=== PATIENT | female | born 1965 | race Caucasian/White ===

== ENCOUNTER 2020-05-25 23:22 | Emergency (ER) | payer SELFPAY ==
[~2020-05-25] VITALS: Ht 167.6 cm; Wt 77.1 kg
== END 2020-05-26 00:29 | disposition home or self-care (01) ==
LOC: ER 23:22
DX: J06.9 Acute upper respiratory infection, unspecified (principal)
CPT/HCPCS: 99282

== ENCOUNTER 2020-08-24 16:02 | Emergency (ER) | payer OTHER ==
[~2020-08-24] VITALS: Ht 167.6 cm; Wt 79.4 kg
[2020-08-24] MEDS ORDERED: Bactrim Ds Tab1 EACH PO (17:12)
== END 2020-08-24 17:33 | disposition home or self-care (01) ==
LOC: ER 16:02
DX: L03.116 Cellulitis of left lower limb (principal); F17.200 Nicotine dependence, unspecified, uncomplicated
CPT/HCPCS: 73590; 99283-25

== ENCOUNTER 2021-01-15 16:26 | Emergency (ER) | payer OTHER ==
[~2021-01-15] VITALS: Ht 165.1 cm; Wt 84.4 kg
[~2021-01-15 16:26] MED LIST: Bactrim Ds Tab1 EACH PO
[2021-01-15 18:37] LABS: Source, Urine Voided
[2021-01-15 18:41] LABS: Appearance, Urine Clear (Clear); Bilirubin, Urine Neg (Neg); Blood, Urine 1+ (Neg); Color, Urine Yellow (P-Yellow); Glucose Qualitative, Urine Neg (Neg); Ketones, Urine Neg (Neg); Leukocyte Esterase, Urine Neg (Neg); Nitrite, Urine Neg (Neg); Protein, Urine Neg (Neg); Urobilinogen, Urine NORM (Normal)
[2021-01-15 19:00] LABS: Bacteria Few /hpf; Red Blood Cells, Urine 0-2 /hpf (0-2); Squamous Epithelial Cells Few /hpf (Few); White Blood Cells, Urine 0-2 /hpf (0-5)
[2021-01-15] MEDS ORDERED: Norco 5-325 Ta1 EACH PO (20:41)
== END 2021-01-15 20:56 | disposition home or self-care (01) ==
LOC: ER 16:26
PROVIDERS: Emergency Medicine
DX: N83.201 Unspecified ovarian cyst, right side (principal); F17.200 Nicotine dependence, unspecified, uncomplicated
CPT/HCPCS: 76830; 76856; 81001; 81025; 86304; 99284-25; A9270

== ENCOUNTER 2021-01-28 06:06 | Day surgery (SDC) | payer OTHER ==
[~2021-01-28] VITALS: Ht 167.6 cm; Wt 83.1 kg
[~2021-01-28 06:06] MED LIST changes: +Norco 5-325 Ta1 EACH PO
== END 2021-01-28 10:58 | disposition home or self-care (01) ==
LOC: ORSCSDS 06:06
PROVIDERS: Obstetrics & Gynecology
PROC: 0DNW4ZZ Release Peritoneum, Percutaneous Endoscopic Approach (ICD-10-PCS; principal; 2021-01-28 07:30)
PROC: 0UT54ZZ Resection of Right Fallopian Tube, Percutaneous Endoscopic Approach (ICD-10-PCS; principal; 2021-01-28 07:30)
PROC: 0UT04ZZ Resection of Right Ovary, Percutaneous Endoscopic Approach (ICD-10-PCS; principal; 2021-01-28 07:30)
DX: D27.0 Benign neoplasm of right ovary (principal); K66.0 Peritoneal adhesions (postprocedural) (postinfection); I10 Essential (primary) hypertension; F17.210 Nicotine dependence, cigarettes, uncomplicated; Z79.899 Other long term (current) drug therapy; Z79.82 Long term (current) use of aspirin
CPT/HCPCS: 88305; J0171; J0360; J0690; J1100; J1885; J2270; J2405; J2550; J2704; J3010; J7120

== ENCOUNTER → 2024-03-27 | Outpatient (CLI) | payer OTHER ==
[~2024-03-27] MED LIST changes: +CYCL10 PO; +LIDO700A20 TOP
[2024-03-27 19:45] LABS: Alanine Aminotransfer (ALT/SGP 61 U/L (12-78); Albumin/Globulin Ratio 0.9 (0.8-1.8); Alk Phos 210 U/L (50-136); Anion Gap 14 mmol/L (3-11); Aspartate Aminotrans (AST/SGOT 185 U/L (12-37); Bilirubin, Total 0.8 mg/dL (0.1-1.0); Blood Urea Nitrogen 7 mg/dL (8-24); Bun/Creatinine Ratio 10.4 (12.0-20.0); CHOL/HDL RATIO 4.2; CO2, Blood 21 mmol/L (21-32); Calcium, Blood 8.6 mg/dL (8.5-10.1); Chloride, Blood 104 mmol/L (98-108); Cholesterol 229 mg/dL (50-200); Creatinine, Blood 0.67 mg/dL (0.40-1.00); Globulin, Blood 3.3 g/dL (2.2-4.0); Glomerular Filtration Rate 101 (60-); Glucose, Blood 102 mg/dL (70-99); HDL Cholesterol 54 mg/dL (>39); LDL/HDL RATIO 2.4; Low Density Lipoprotein Chol 129 mg/dL (0-110); Sodium, Blood 135 mmol/L (136-145); Total Protein, Blood 6.3 g/dL (6.4-8.2); Triglycerides 229 mg/dL (30-160); Very Low Density Lipoprot Chol 45 mg/dL (6-32)
== END ==
LOC: LAB SHORT 11:23 → LAB 11:23
PROVIDERS: Physician Assistant
DX: E78.00 Pure hypercholesterolemia, unspecified (principal); R74.8 Abnormal levels of other serum enzymes
CPT/HCPCS: 80053; 80061

== ENCOUNTER 2024-07-08 12:30 | Inpatient (IN) | payer OTHER ==
[2024-07-08] VITALS (10 sets, daily range): BP systolic 67–98; BP diastolic 48–64
[~2024-07-08] VITALS: Ht 160 cm; Wt 67.0 kg
[2024-07-08] MEDS ORDERED: Pantoprazole Sodium 40 MG Injection IV ONE (13:25)
[2024-07-08] MEDS ORDERED: Ondansetron HCl 2 MG / ML 2ML Vial IV ONE (13:25)
[2024-07-08] MEDS ORDERED: LISI20 PO (13:28)
[2024-07-08 13:34] LABS: Hematocrit 23.9 % (33.0-51.0); Hemoglobin 8.1 g/dL (11.5-16.0); Mean Corpuscular HGB 38.8 pg (26.0-34.0); Mean Corpuscular HGB Conc 33.9 g/dL (31.5-36.5); Mean Corpuscular Volume 114 fL (80-100); Mean Platelet Volume 10.6 fL (9.1-12.4); NRBC ABSOLUTE 0.02 K/mm3 (0.00-0.02); NRBC Auto 0.1 /100 WBC (0.0-0.2); Platelet Count 207 K/mm3 (150-400); RDW Coefficient Variation 14.6 % (11.7-14.2); Red Blood Cell Count 2.09 M/mm3 (3.80-5.20); White Blood Cell Count 13.94 K/mm3 (4.00-11.30)
[2024-07-08 13:37] LABS: Calcium, Ionized (POC) 0.96 mmol/L (1.10-1.46); Chloride (POC) 95 mmol/L (98-108); Creatinine (POC) 3.8 mg/dL (0.6-1.0); Glucose (ISTAT POC) 66 mg/dL (70-99); Hemoglobin (POC) 9.9 g/dL (12.0-16.0); Potassium (POC) 4.5 mmol/L (3.5-5.5); Sodium (POC) 125 mmol/L (135-148); Total CO2 (POC) 18 mmol/L (21-32)
[2024-07-08] MEDS ORDERED: Dextrose 50% 50 ML Syringe IV ONE (13:45)
[2024-07-08] MEDS ORDERED: NS 1,000 ML IV SCH ×2 (13:45→18:15)
[2024-07-08] MEDS ORDERED: Thiamine HCl 100 MG in NS 50 ML IV ONE (13:45)
[2024-07-08] MEDS ORDERED: CALCIUM GLUC IN NACL, ISO-OSM 100 ML IV ONE (13:45)
[2024-07-08] MEDS ORDERED: Dextrose 50% 50 ML Vial IV ONE (13:55)
[2024-07-08 14:10] LABS: Albumin, Blood 1.9 g/dL (3.4-5.0); Albumin/Globulin Ratio 0.5 (0.8-1.8); Bilirubin, Total 3.2 mg/dL (0.1-1.0); Bun/Creatinine Ratio 16.1 (12.0-20.0); Calcium, Blood 7.8 mg/dL (8.5-10.1); Creatinine, Blood 2.79 mg/dL (0.40-1.00); Globulin, Blood 3.8 g/dL (2.2-4.0); Potassium, Blood 4.5 mmol/L (3.5-5.5); Total Protein, Blood 5.7 g/dL (6.4-8.2)
[2024-07-08 14:14] LABS: BASOPHILS PERCENT MAN 0 % (0-2); EOSINOPHILS PERCENT MAN 0 % (0-6); LYMPHOCYTES ABSOLUTE MAN 2.36 K/mm3 (0.84-5.20); LYMPHOCYTES PERCENT MAN 17 % (21-46); MONOCYTES ABSOLUTE MAN 0.97 K/mm3 (0.16-1.47); MONOCYTES PERCENT MAN 7 % (4-13); NEUTROPHILS ABSOLUTE MAN 10.59 K/mm3 (1.96-9.15); SEG NEUTROPHILS PERCENT MAN 76 % (41-73); TOTAL CELLS COUNTED 100
[2024-07-08 14:20] LABS: International Normalized Ratio 1.12; Prothrombin Time Results 11.9 Sec (9.7-11.5)
[2024-07-08 14:25] LABS: Influenza A, PCR NEGATIVE (NEGATIVE); Influenza B, PCR NEGATIVE (NEGATIVE); Resp Syncytial Virus, PCR NEGATIVE (NEGATIVE); SARS-Cov-2 (COVID-19) PCR, MMC NEGATIVE (NEGATIVE)
[2024-07-08] MEDS ORDERED: CefTRIAXone Sodium 1,000 MG in NS 100 ML IV ONE ×2 (14:30→18:00)
[2024-07-08] MEDS ORDERED: PHENobarbital Sodium 65MG / ML 1ML Vial IV ONE (14:35)
[2024-07-08] MEDS ORDERED: D5W-1/2NS 1,000 ML IV SCH (15:15)
[2024-07-08 15:33] LABS: Source, Urine Clean Catch
[2024-07-08 15:43] LABS: Appearance, Urine Clear (Clear); Bilirubin, Urine Neg (Neg); Blood, Urine 1+ (Neg); Color, Urine Yellow (P-Yellow); Glucose Qualitative, Urine Neg (Neg); Ketones, Urine Neg (Neg); Leukocyte Esterase, Urine 3+ (Neg); Nitrite, Urine Neg (Neg); Protein, Urine 1+ (Neg); Urobilinogen, Urine NORM (Normal)
[2024-07-08 15:51] LABS: White Blood Cells, Urine 25-50 /hpf (0-5)
[2024-07-08 15:52] LABS: Bacteria Many /hpf; Squamous Epithelial Cells Few /hpf (Few)
[2024-07-08 17:19] LABS: Hematocrit 21.1 % (33.0-51.0); Hemoglobin 6.6 g/dL (11.5-16.0)
[2024-07-08] MEDS ORDERED: NS 1,000 ML IV ONE (17:54)
[2024-07-08] MEDS ORDERED: D5W-NS 1,000 ML IV SCH (19:55)
[2024-07-08] MEDS ORDERED: FLU VACC TS2024-25(6MOS UP)/PF 45 MCG/0.5 ML SYRINGE IM SCH (19:55)
[2024-07-08] MEDS ORDERED: Ondansetron HCl 2 MG / ML 2ML Vial IV PRN (19:55)
[2024-07-08] MEDS ORDERED: ChlordiazePOXIDE 25 MG Cap PO PRN ×2 (19:55→20:00)
[2024-07-08] MEDS ORDERED: LORazepam 2 MG/ML 1ML Injection IV PRN ×2 (20:00)
[2024-07-08 20:01] LABS: Hematocrit 24.8 % (33.0-51.0); Hemoglobin 8.4 g/dL (11.5-16.0)
[2024-07-08] MEDS ORDERED: Mag Sulfate 1 GM/D5% 100ML 100 ML IV STA (20:01)
[2024-07-08 20:36] LABS: Base Excess Venous -8.6 mmol/L; Bicarbonate Venous 18.3 mmol/L (24.0-30.0); PCO2 Venous 25.9 mmHg (38-42)
[2024-07-08 20:55] LABS: Percent Saturation 135.1 % (15.0-50.0)
[2024-07-08 21:18] LABS: Calcium, Blood 7.8 mg/dL (8.5-10.1); Creatinine, Blood 2.1 mg/dL (0.40-1.00); Potassium, Blood 4.2 mmol/L (3.5-5.5)
[2024-07-08 21:38] LABS: Uric Acid, Blood 13.8 mg/dL (2.6-6.0)
[2024-07-08 23:04] LABS: Source, Urine Foley catheter
[2024-07-08] MEDS ORDERED: Albumin (Human) 25gm/100ml 100 ML IV SCH (23:05)
[2024-07-08 23:07] LABS: Bilirubin, Urine Neg (Neg); Blood, Urine 2+ (Neg); Glucose Qualitative, Urine Neg (Neg); Ketones, Urine Neg (Neg); Leukocyte Esterase, Urine 3+ (Neg); Nitrite, Urine Neg (Neg); Protein, Urine 2+ (Neg); Urobilinogen, Urine NORM (Normal)
[2024-07-08 23:20] LABS: Appearance, Urine Turbid (Clear); Color, Urine Yellow (P-Yellow)
[2024-07-08 23:23] LABS: Bacteria Mod /hpf; Squamous Epithelial Cells Few /hpf (Few); White Blood Cells, Urine 50-100 /hpf (0-5)
[2024-07-08] MEDS ORDERED: Darbepoetin Alfa in Polysorbat 25 MCG/0.42 ML Syringe SC ONE (23:55)
[2024-07-09] VITALS (87 sets, daily range): BP systolic 70–108; BP diastolic 38–78
--- NOTE | 2024-07-09 00:31 | NUR ---
PATIENT TO ICU 3 FROM ER AT 2119. PATIENT IS ALERT AND ORIENTED X2-3. ABLE TO STATE SELF, PLACE AND SITUATION, UNABLE TO STATE MONTH AND YEAR. SP02 95% ON RA, DENIES SOB. HR SR 90s, BP HYPOTENSIVE MAPS IN THE 50s-65. PATIENT GETTING FLUIDS AND ALBUMIN. DENIES CP/PRESSURE. PATIENT HAS OPEN WOUND ON BUTTOCKS, MADE AWARE AND PHOTO IN CHART. PATIENT INCONTINENT, WHITFIELD PLACED TO PROTECT SKIN, PATENT AND DRAINING TO GRAVITY. CALL LIGHT IN REACH
[2024-07-09 01:30] LABS: Hematocrit 24.9 % (33.0-51.0); Hemoglobin 8.5 g/dL (11.5-16.0)
[2024-07-09 04:38] LABS: Hematocrit 23.8 % (33.0-51.0); Hemoglobin 8.2 g/dL (11.5-16.0); Mean Corpuscular HGB 35.7 pg (26.0-34.0); Mean Corpuscular HGB Conc 34.5 g/dL (31.5-36.5); Mean Platelet Volume 10.3 fL (9.1-12.4); Platelet Count 158 K/mm3 (150-400); RDW Coefficient Variation 22.4 % (11.7-14.2); RDW Standard Deviation 82.1 fL (35.1-46.3); White Blood Cell Count 9.84 K/mm3 (4.00-11.30)
[2024-07-09 04:52] LABS: International Normalized Ratio 1.18; Prothrombin Time Results 12.5 Sec (9.7-11.5)
[2024-07-09 05:04] LABS: Mean Corpuscular Volume 104 fL (80-100)
[2024-07-09 05:07] LABS: BAND PERCENT MAN 3 % (0-8); BASOPHILS ABSOLUTE MAN 0.19 K/mm3 (0.00-0.23); BASOPHILS PERCENT MAN 2 % (0-2); EOSINOPHILS PERCENT MAN 0 % (0-6); LYMPHOCYTES ABSOLUTE MAN 1.18 K/mm3 (0.84-5.20); LYMPHOCYTES PERCENT MAN 12 % (21-46); MONOCYTES ABSOLUTE MAN 0.59 K/mm3 (0.16-1.47); MONOCYTES PERCENT MAN 6 % (4-13); MYELOCYTE ABSOLUTE MAN 0.09 K/mm3 (0.00-0.00); MYELOCYTE PERCENT MAN 1 % (0-0); NEUTROPHILS ABSOLUTE MAN 7.77 K/mm3 (1.96-9.15); SEG NEUTROPHILS PERCENT MAN 76 % (41-73); TOTAL CELLS COUNTED 100
[2024-07-09 05:12] LABS: Albumin, Blood 2.7 g/dL (3.4-5.0); Albumin/Globulin Ratio 0.9 (0.8-1.8); Bilirubin, Total 2.8 mg/dL (0.1-1.0); Bun/Creatinine Ratio 20.7 (12.0-20.0); Calcium, Blood 8.1 mg/dL (8.5-10.1); Creatinine, Blood 1.74 mg/dL (0.40-1.00); Globulin, Blood 3.1 g/dL (2.2-4.0); Magnesium, Blood 2.2 mg/dL (1.6-2.4); Phosphorus, Blood 3.1 mg/dL (2.5-4.9); Thyroid Stimulating Hormone 3.74 uIU/mL (0.360-4.800); Total Protein, Blood 5.8 g/dL (6.4-8.2)
--- NOTE | 2024-07-09 06:20 | NUR ---
SHIFT SUMMARY PATIENT REMAINS ALERT AND ORIENTED X2-3. SP02 97% ON 2L VIA NC, LS CLEAR. HR SR 80s, BP HYPOTENSIVE, LEVOPHED STARTED TO MAINTAIN MAP >65. WHITFIELD PATENT AND DRAINING TO GRVAITY. REPOSITIONED Q2 HOURS. CALL LIGHT IN REACH
[2024-07-09] MEDS ORDERED: Thiamine HCl 100 MG Tab PO SCH (09:00)
[2024-07-09] MEDS ORDERED: Folic Acid 1 MG TAB PO SCH (09:00)
[2024-07-09] MEDS ORDERED: Multivitamins 1 Tab PO SCH (09:00)
[2024-07-09 10:09] LABS: Hematocrit 26.8 % (33.0-51.0); Hemoglobin 9.2 g/dL (11.5-16.0); Mean Corpuscular HGB 36.1 pg (26.0-34.0); Mean Corpuscular HGB Conc 34.3 g/dL (31.5-36.5); Mean Corpuscular Volume 105 fL (80-100); Mean Platelet Volume 10.7 fL (9.1-12.4); Platelet Count 169 K/mm3 (150-400); RDW Standard Deviation 84.6 fL (35.1-46.3); Red Blood Cell Count 2.55 M/mm3 (3.80-5.20); White Blood Cell Count 9.71 K/mm3 (4.00-11.30)
[2024-07-09 10:38] LABS: BASOPHILS PERCENT MAN 0 % (0-2); EOSINOPHILS PERCENT MAN 0 % (0-6); LYMPHOCYTES ABSOLUTE MAN 1.06 K/mm3 (0.84-5.20); LYMPHOCYTES PERCENT MAN 11 % (21-46); METAMYELOCYTE ABSOLUTE MAN 0.09 K/mm3 (0.00-0.00); METAMYELOCYTE PERCENT MAN 1 % (0-0); MONOCYTES ABSOLUTE MAN 0.19 K/mm3 (0.16-1.47); MONOCYTES PERCENT MAN 2 % (4-13); NEUTROPHILS ABSOLUTE MAN 8.35 K/mm3 (1.96-9.15); SEG NEUTROPHILS PERCENT MAN 86 % (41-73); TOTAL CELLS COUNTED 100
[2024-07-09] MEDS ORDERED: Pantoprazole Sodium 40 MG Injection IV SCH (16:30)
[2024-07-09 17:20] LABS: Hematocrit 27.4 % (33.0-51.0); Hemoglobin 9.2 g/dL (11.5-16.0)
--- NOTE | 2024-07-09 17:54 | NUR ---
SHIFT SUMMARY NO ACUTE CHANGES THIS SHIFT. PT HAS REMAINED ALERT AND ORIENTED WHEN AWAKE. PT SLEEPING OFF AND ON THIS AFTERNOON. PT FORGETFUL AT TIMES. PT TREMULOUS THIS SHIFT. PT MED WITH LIBRIUM PER EMAR. PT ABLE TO TAKE PO FLUIDS AND DIET WELL. PT TITRATED OFF LEVOPHED THIS AFTERNOON. PT ON ROOM AIR. VITAL SIGNS STABLE. PIV'S SALINE LOCKED AT THIS TIME. WHITFIELD REMAINS IN PLACE WITH CLOUDY YELLOW URINE OUTPUT NOTED. PT INCONTINENT OF STOOL THIS SHIFT, NO SIGNS OF GI BLEEDING NOTED. EXCORIATIONS AND BRUISES REMAIN UNCHANGED. WILL CONTINUE TO MONITOR AND REPORT OFF TO ONCOMING RN.
[2024-07-09] MEDS ORDERED: CefTRIAXone Sodium 2,000 MG in NS 100 ML IV SCH (18:00)
[2024-07-09] MEDS ORDERED: CefTRIAXone Sodium 1,000 MG in NS 100 ML IV SCH (18:00)
--- NOTE | 2024-07-09 20:19 | NUR ---
ASSUMED CARE AT 1900 PATIENT RESPONDS TO VERBAL STIMULI, ORIENTED X2-3. CIWA 7-9, MEDICATED PER EMAR. SP02 98% ON 2L VIA NC. HR SR 80s, BP STABLE OFF LEVOPHED. DENIES CP/PRESSURE. WHITFIELD PATENT AND DRAINING TO GRAVITY. PATIENT ABLE TO REPOSITION SELF. ORAL CARE DONE. CALL LIGHT IN REACH
[2024-07-10] VITALS (21 sets, daily range): BP systolic 79–110; BP diastolic 54–72
--- NOTE | 2024-07-10 00:40 | NUR ---
PATIENT TO U 9 AT APPROX 0000.
--- NOTE | 2024-07-10 02:51 | NUR ---
PHYSICIAN COMMUNICATION PATIENT CONTINUES TO HAVE LOW BLOOD PRESSURE AFTER BEING TRANSFERRED TO PCU WITH SYSTOLIC BP 80'S-90'S, MAP RANGING BETWEEN 63-72. DR DEL CASTILLO NOTIFIED OF THIS AND REVIEWED PATIENT'S HOSPITAL COURSE WITH HIM. DR DEL CASTILLO ORDERED A STAT H+H DRAWN AND A 1000 ML BOLUS GIVEN AFTER BLOOD DRAW.
[2024-07-10 02:59] LABS: Hematocrit 25.3 % (33.0-51.0); Hemoglobin 8.5 g/dL (11.5-16.0); Mean Corpuscular HGB 35.6 pg (26.0-34.0); Mean Corpuscular HGB Conc 33.6 g/dL (31.5-36.5); Mean Corpuscular Volume 106 fL (80-100); Mean Platelet Volume 10.9 fL (9.1-12.4); Platelet Count 168 K/mm3 (150-400); RDW Coefficient Variation 22.7 % (11.7-14.2); RDW Standard Deviation 85.2 fL (35.1-46.3); Red Blood Cell Count 2.39 M/mm3 (3.80-5.20); White Blood Cell Count 9.16 K/mm3 (4.00-11.30)
[2024-07-10] MEDS ORDERED: NS 1,000 ML IV ONE (03:00)
[2024-07-10 03:52] LABS: Albumin, Blood 2.3 g/dL (3.4-5.0); Anion Gap 9 mmol/L (3-11); Blood Urea Nitrogen 29 mg/dL (8-24); Bun/Creatinine Ratio 23.8 (12.0-20.0); CO2, Blood 22 mmol/L (21-32); Calcium, Blood 8.5 mg/dL (8.5-10.1); Chloride, Blood 110 mmol/L (98-108); Creatinine, Blood 1.22 mg/dL (0.40-1.00); Glomerular Filtration Rate 51 (60-); Glucose, Blood 102 mg/dL (70-99); Phosphorus, Blood 2.1 mg/dL (2.5-4.9); Potassium, Blood 3.9 mmol/L (3.5-5.5); Sodium, Blood 137 mmol/L (136-145)
[2024-07-10] MEDS ORDERED: Sodium Phosphate 10 MM in Dextrose 5% 250 ML IV STA (04:52)
--- NOTE | 2024-07-10 06:15 | NUR ---
SHIFT SUMMARY PATIENT ALERT AND ORIENTED X3, VERY DROWSY AND IS DIFFICULT TO WAKE UP. DAYSIN HAS APPROPRIATE CONVERSATIONS WITH STAFF, CIWA STABLE OVERNIGHT. BLOOD PRESSURE CONTINUES TO BE LOW AFTER RECEIVING THE FLUID BOLUS BUT MAP IS NOW CONSISTENTLY ABOVE 65. PATIENT ON 2 LITERS O2 VIA NC. WILL CONTINUE TO MONITOR. CALL LIGHT WITHIN REACH.
--- NOTE | 2024-07-10 08:41 | NUR ---
MD AT BEDSIDE: MD AMBRIZ TO BEDSIDE. STATED PLAN WILL CONTINUE TO MONITOR BLOOD PRESSURE BEFORE BEING RELEASED IN A COUPLE DAYS. NEW ORDERS WERE PLACED. PATIENT HAS CALL LIGHT WITHIN REACH AND BED AT THE LOWEST POSITION.
--- NOTE | 2024-07-10 10:23 | NUR ---
FAMILY CALLED FOR UPDATE AND THIS RN UPDATED ABOUT PATIENT STATUS.
--- NOTE | 2024-07-10 11:12 | NUR ---
Pt up to chair while working with PT Lionel. Had a smear of brown BM; pericare and attends change while pt was up OOB. In chair, chair alarm on at this time. Pt encouraged to get OOB for each meal to increase her strength.
--- NOTE | 2024-07-10 11:13 | NUR ---
Bladder training ongoing with view to d/c indwelling catheter by the end of today.
--- NOTE | 2024-07-10 13:08 | NUR ---
CALL PLACED TO MD: MD AMBRIZ CALLED FOR STATUS CHANGE. UPDATE GIVEN REGARDING BLOOD PRESSURE AND HOW CIWA SCORES HAVE BEEN 3 OR LOWER. ORDERED STATUS CHANGE MEDICAL WITHOUT TELE.
--- NOTE | 2024-07-10 13:16 | NUR ---
PATIENT NOTIFIED ABOUT THE CHANGE IN STATUS AND TELE BEING REMOVED. TELE REMOVED AND PATIENT AWARE OF THE TRANSFER ONCE A ROOM BECOMES AVAILABLE.
--- NOTE | 2024-07-10 16:08 | NUR ---
TRANSFER NOTE: REPORT GIVEN TO LEXIS BEAR. PATIENT TRANSFFERED VIA WHEELCHAIR WITH ALL PERSONAL BELONGINGS. A CALL WAS MADE TO PATIENT FAMILY NOTIFYING ABOUT THE CHANGE IN ROOM. PATIENT TAKEN OFF TELE AND CHART WAS TAKEN WITH HER.
[2024-07-10] MEDS ORDERED: NS 250 ML IV PRN (18:00)
--- NOTE | 2024-07-10 18:27 | NUR ---
ASSUMED CARE NOTE RECEIVED REPORT FROM BRADEN BEAR AND ASSUMED CARE OF PT AT APPROX 1630. PT A&OX3, AMB FROM W/C TO BED W/ 2P ASSIST, AND DENIED PAIN. PT ORIENTED TO ROOM AND CALL LIGHT. CALL LIGHT PLACED WITHIN REACH AND BED ALARM ON FOR SAFETY.
--- NOTE | 2024-07-10 18:30 | NUR ---
SHIFT SUMMARY PT A&OX3, VSS, 2P MAX ASSIST, IMPULSIVE, TOLERATING PO, VOIDING, AND DENIED PAIN. CALL LIGHT WITHIN REACH AND BED ALARM ON. NO ACUTE CHANGES FROM LAST NOTE.
--- NOTE | 2024-07-10 19:25 | NUR ---
PATIENT IS IMPULSIVE-ATTEMPTING OOB UNSAFELY SEVERAL TIMES DURING SHIFT REPORT. PATIENT IS TURNING OFF BED ALARM AND CHAIR ALARM PAD PLACED IN A SECONDARY-PATIENT PULLING OUT FROM UNDER HER AND TURNING OFF ALARM-MICH PLACED FOR PATIENT SAFETY.
--- NOTE | 2024-07-10 19:40 | NUR ---
HOSPITALIST CONTACTED. PATIENT ATTEMPTING OOB UNSAFELY, IS A FALL RISK, UNSAFE BEHAVIOR, NOT DIRECTABLE, REQUEST A MICH FOR PATIENT SAFETY. RACHEL ORDERED FOR PATIENT TO BE IN A MICH FOR PATIENT SAFETY.
--- NOTE | 2024-07-10 20:30 | NUR ---
PATIENT YELLING OUT WANTING TO HAVE MICH VEST REMOVED. PATIENT EDUCATED ON NEED FOR MICH VEST AND THE NEED FOR HER SAFETY, WELL WHAT ACTIONS THAT SHE WOULD NEED TO DO IN ORDER TO HAVE THE RESTRAINT REMOVED.
[2024-07-10] MEDS ORDERED: QUEtiapine Fumarate 50 MG TAB PO PRN (21:05)
--- NOTE | 2024-07-10 23:23 | NUR ---
PATIENT CONTINUES TO REMOVE RESTRAINTS-PRN SEROQUEL GIVEN-RESTRAINTS REPLACED AND WILL ATTEMPT TO GET PATIENT ON CAMERA OR A SITTER.
--- NOTE | 2024-07-10 23:53 | NUR ---
PATIENT YELLING OUT UPON ENTERING PATIENTS ROOM PATIENT FOUND ON THE FLOOR NEXT TO BED. WHEN THIS RN ASKED PATIENT WHAT HAPPENED PATIENT STATED SHE WAS "TRYING TO GO TO SLEEP", ASKED PATIENT HOW SHE FELL, PATIENT STATED "I DIDNT FALL AND I DIDNT HIT MY HEAD". PATIENT ASSESSED-NO NOTD INJURIES. PATIENT ABLE TO ASSIST IN STANDING UP FROM FLOOR WITH 2P ASSIST AND GB. DR. PARK NOTIFIED.
--- NOTE | 2024-07-11 00:17 | NUR ---
PATIENT ATTEMPTING TO CLIMB OOB UNSAFELY-VIRTUAL TANK TRUCK DRIVER ON BUT DID NOT ALARM OR ADDRESS PATIENT TO REMAIN IN BED. THIS RN AND AUTOMOBILE BODY WORKER RAMBO ASSISTED PATIENT BACK INTO BED. PATIENT YELLING AT STAFF STAYING "FUCK YOU, I WONT BE STAYING HER AGAIN". ATTEMPTED TO REORIENT PATIENT-PATIENT NON-RECEPTIVE REDIRECTION. DISTRACTION, LOWER STIMULI IN ROOM, CHANGE OF FACE ATTEMPTED WITH NO SUCCESS TO PATIENTS BEHAVIOR OR COOPERATION.
--- NOTE | 2024-07-11 00:19 | NUR ---
PATIENT ATTEMPTING OOB UNSAFELY-PATIENT CALLED CONSTRUCTION OR LEAK GANG LABORER "ASSHOLE FOR NOT ALLOWING PATIENT TO SMOKE"-PATIENT EDUCATED ON [facility]'S NO SMOKING POLICY AND THAT WE ARE A NON-SMOKING FACILITY. PATIENT OFFERED A NICOTIEN PATCH-PATIENT REFUSED. PATIENT CONTINUED TO YELLING OUT PROFANITY AT STAFF.
[2024-07-11] MEDS ORDERED: Haloperidol Lactate Inj. 5 MG/ML Injection IV ONE ×2 (01:10→14:00)
--- NOTE | 2024-07-11 01:20 | NUR ---
VIRTUAL NEON SIGN SERVICER NOT NEEDED PATIENT NOW HAS A SITTER.
[2024-07-11 04:03] VITALS: BP 111/75
[2024-07-11 05:46] LABS: Hematocrit 25.9 % (33.0-51.0); Hemoglobin 8.6 g/dL (11.5-16.0); Mean Corpuscular HGB 35.7 pg (26.0-34.0); Mean Corpuscular HGB Conc 33.2 g/dL (31.5-36.5); Mean Corpuscular Volume 108 fL (80-100); Mean Platelet Volume 11.2 fL (9.1-12.4); Platelet Count 148 K/mm3 (150-400); RDW Coefficient Variation 22.2 % (11.7-14.2); RDW Standard Deviation 85.4 fL (35.1-46.3); Red Blood Cell Count 2.41 M/mm3 (3.80-5.20); White Blood Cell Count 8.15 K/mm3 (4.00-11.30)
[2024-07-11 06:28] LABS: Albumin, Blood 2.1 g/dL (3.4-5.0); Anion Gap 11 mmol/L (3-11); Blood Urea Nitrogen 19 mg/dL (8-24); Bun/Creatinine Ratio 19.2 (12.0-20.0); CO2, Blood 21 mmol/L (21-32); Calcium, Blood 8.4 mg/dL (8.5-10.1); Chloride, Blood 113 mmol/L (98-108); Creatinine, Blood 0.99 mg/dL (0.40-1.00); Glomerular Filtration Rate 66 (60-); Glucose, Blood 105 mg/dL (70-99); Magnesium, Blood 1.7 mg/dL (1.6-2.4); Phosphorus, Blood 1.9 mg/dL (2.5-4.9); Potassium, Blood 3.8 mmol/L (3.5-5.5); Sodium, Blood 141 mmol/L (136-145)
--- NOTE | 2024-07-11 06:32 | NUR ---
SHIFT SUMMARY. PATIENT ABLE TO ANSWER ORIETATION QUESTIONS BUT IS FORGETFUL AND CONFUSED AT TIMES. PATIENT HAS BEEN NON-COMPLIANT THIS SHIFT-SEE PREVIOUS NOTES. PATIENT HAS A SITTER D/T BEHAVIOR AND SAFETY CONCERNS. PATIENT IS IMPULSIVE AND DIFFICULT TO REDIRECT. PATIENT RESTING AT THIS TIME. BED IS LOCKED IN THE LOWEST POSITION WITH CALL LIGHT IN REACH. CARE IS ONGOING.
[2024-07-11] MEDS ORDERED: Sodium Phosphate 20 MM in Dextrose 5% 500 ML IV STA (06:36)
[2024-07-11 07:04] VITALS: BP 105/75
[2024-07-11] MEDS ORDERED: Nicotine 21 MG PATCH TOP ONE (12:15)
[2024-07-11 15:08] VITALS: BP 113/77
[2024-07-11] MEDS ORDERED: Haloperidol Lactate Inj. 5 MG/ML Injection IV PRN (16:35)
--- NOTE | 2024-07-11 16:54 | NUR ---
SHIFT SUMMARY: PATIENT A/OX2-3, CONFUSED, ANXIOUS AT TIMES, AGITATED AND ATTEMPT TO LEAVE ON MULTIPLE OCCASION. PATIENT STATED "I JUST WANT TO GO OUTSIDE AND SMOKE." PATIENT WAS REDIRECTABLE AND AGREEABLE FOR NICOTINE PATCH. NICOTINE PATCH IN PLACED. PATIENT MEDICATED X1 c IV HALDOL AND X2 PRN PO SEROQUEL FOR AGITATION c MOD EFFECT. PATIENT RECEIVED OT DOSE IV NA PHOS PER ORDER. PATIENT RECEIVED SCHEDULED IV ABX/MEDS PER EMAR. PATIENT HAS 1:1 SITTER FOR SAFETY. PATIENT HAS GOOD APPETITE, CONTINENT/INCONTINENT OF BLADDER, USES [facility] c 1 ASSIST. VITAL SIGNS REVIEWED. CALL LIGHT IN REACH.
[2024-07-11 17:56] VITALS: BP 114/71
[2024-07-11 19:31] LABS: HEPATITIS A ANTIBODY, IGM Negative (Negative); HEPATITIS B CORE ANTIBODY, IGM Negative (Negative); HEPATITIS B SURFACE ANTIGEN Negative (Negative); HEPATITIS C AB CIA INTERP Negative (Negative)
[2024-07-11 19:48] VITALS: BP 95/75
[2024-07-11] MEDS ORDERED: QUEtiapine Fumarate 100 MG Tab PO SCH (21:00)
--- NOTE | 2024-07-12 03:58 | NUR ---
SHIFT SUMMARY ADMITTED FOR ANEMIA. DNR CODE. FOUND TO BE IN ETOH WITHDRAWAL. UTI+. IV ANTIB RX ARE SCHEDULED. REGULAR DIET. ON RA. A&O X2. SHE IS AGITATED AND WANTING TO GO HOME TO HER CAT, THIS TOPIC IS BROUGHT UP FREQUENTLY. NICOTINE PATCH IN PLACE. 1 ASSIST - BRP. PRN ANXIETY MEDICATION GIVEN. REGULAR DIET. FELL SINCE ADMIT. FALL PRECAUTIONS IN PLACE.
[2024-07-12 04:37] VITALS: BP 104/61
[2024-07-12 05:28] LABS: Hematocrit 30.1 % (33.0-51.0); Hemoglobin 9.8 g/dL (11.5-16.0)
[2024-07-12 05:52] LABS: Albumin, Blood 2.3 g/dL (3.4-5.0); Anion Gap 14 mmol/L (3-11); Blood Urea Nitrogen 14 mg/dL (8-24); Bun/Creatinine Ratio 15.5 (12.0-20.0); CO2, Blood 18 mmol/L (21-32); Calcium, Blood 8.3 mg/dL (8.5-10.1); Chloride, Blood 112 mmol/L (98-108); Creatinine, Blood 0.91 mg/dL (0.40-1.00); Glomerular Filtration Rate 73 (60-); Glucose, Blood 101 mg/dL (70-99); Magnesium, Blood 1.5 mg/dL (1.6-2.4); Phosphorus, Blood 2.3 mg/dL (2.5-4.9); Potassium, Blood 3.9 mmol/L (3.5-5.5); Sodium, Blood 140 mmol/L (136-145)
[2024-07-12] MEDS ORDERED: Mag Sulfate 1 GM/D5% 100ML 100 ML IV STA (06:06)
[2024-07-12] MEDS ORDERED: Sodium Phosphate 20 MM in Dextrose 5% 500 ML IV ONE (06:30)
[2024-07-12 07:24] VITALS: BP 105/68
[2024-07-12] MEDS ORDERED: Nicotine 21 MG PATCH TOP SCH (09:00)
[2024-07-12] MEDS ORDERED: Furosemide 10 MG / ML 2ML Vial IV SCH (09:00)
[2024-07-12] MEDS ORDERED: Potassium Chloride 10 Meq Tablet SA PO SCH (09:00)
--- NOTE | 2024-07-12 15:03 | NUR ---
NOTE: PATIENT CONFUSED, ANXIOUS AND AGITATED TREATENING TO PUNCH THE MOISTURE MACHINE TENDER AND LEAVE. PER PATIENT "I NEED TO GO TO STORE AND BUY SOME ALCOHOL. DO YOU KNOW HOW HEAVY I DRINK AND I HAVE NOT HAVE ANY DRINK FOR A WHILE NOW." PATIENT MEDICATED c HALDOL IV c NO EFFECT. NOTIFIED DR. AMBRIZ REGARDING THIS ISSUE. PER DR. AMBRIZ HE WILL PUT THE ORDER IN.
[2024-07-12 15:26] VITALS: BP 113/81
[2024-07-12] MEDS ORDERED: LORazepam 2 MG/ML 1ML Injection IV ONE (16:00)
--- NOTE | 2024-07-12 17:45 | NUR ---
SHIFT SUMMARY: PATIENT A/O TO SELF AND PLACED, CONFUSED AND AGITATED AT TIMES. PATIENT RECEIVED ONE DOSE OF IV HALDOL c NO EFFECT, RECEIVED OT DOSE OF IV ATIVAN c MOD EFFECT, SLEPT FOR ABOUT AN HOUR AN A HALF. PATIENT HAS EDEMA TO BLE'S, BRENDA HOSE IN PLACED AND RECEIVED OT DOSE OF IV LASIX. PATIENT ON 1L FR, CONT/INCON OF BLADDER, ATTENDS IN PLACED AND 1 ASSIST TO GET UP TO BSC. PATIENT SAT UP TO THE RECLINER CHAIR FOR ABOUT 4 HRS THIS SHIFT, TOLERATED WELL. VITAL SIGNS REVIEWED. PATIENT HAS 1:1 SITTER IN ROOM FOR SAFETY. CALL LIGHT IN REACH.
[2024-07-12 19:58] VITALS: BP 124/81
--- NOTE | 2024-07-13 04:02 | NUR ---
SHIFT SUMMARY ADMITTED FOR ANEMIA. DNR CODE. FOUND TO BE IN ETOH WITHDRAWALS ON ADMIT. IV ANTIB RX ARE SCHEDULED FOR A UTI WELL. DR. POZO IS RENAL CONSULT. SHE IS A&O X2-3. AGITATED AT TIMES, DESIRING TO LEAVE. SNF IS RECOMMENDED, BUT SHE HAS REFUSED THUS FAR. SHE LIVES ALONE. REGULAR DIET. ON RA. 1 ASSIST - BRP. SHE DID FALL SINCE ADMIT.
[2024-07-13 05:26] VITALS: BP 111/75
[2024-07-13 05:45] LABS: Hemoglobin 9.2 g/dL (11.5-16.0)
[2024-07-13 06:08] LABS: Anion Gap 12 mmol/L (3-11); Blood Urea Nitrogen 10 mg/dL (8-24); Bun/Creatinine Ratio 12.1 (12.0-20.0); CO2, Blood 21 mmol/L (21-32); Calcium, Blood 8.2 mg/dL (8.5-10.1); Chloride, Blood 112 mmol/L (98-108); Creatinine, Blood 0.82 mg/dL (0.40-1.00); Glomerular Filtration Rate 82 (60-); Glucose, Blood 94 mg/dL (70-99); Magnesium, Blood 1.7 mg/dL (1.6-2.4); Phosphorus, Blood 3.2 mg/dL (2.5-4.9); Sodium, Blood 141 mmol/L (136-145)
[2024-07-13 07:09] VITALS: BP 108/71
[2024-07-13] MEDS ORDERED: Cephalexin Monohydrate 500 MG Cap PO SCH (09:00)
[2024-07-13] MEDS ORDERED: ChlordiazePOXIDE 10 MG Cap PO SCH (11:00)
[2024-07-13 14:30] VITALS: BP 105/74
--- NOTE | 2024-07-13 17:20 | NUR ---
SHIFT SUMMARY: PATIENT A/OX2-3, CONFUSED, CALM, PLEASANT AND COOPERATIVE THIS SHIFT. PATIENT IS EXTREMELY WEAK, 2 HEAVY MAX ASSIST FOR TRANSFER TO BSC/CHAIR/BED. PATIENT CONTINUES TO REFUSED SNF RECOMMENDATION AND WANTS TO GO HOME TOMORROW. PATIENT CONTINENT/INCONTINENT OF BLADDER, MOD APPETITE. PATIENT RECEIVED SCHEDULED MEDS PER EMAR. VITAL SIGNS REVIEWED. CALL LIGHT IN REACH. PATIENT HAS 1:1 SITTER FOR SAFETY. CALL LIGHT IN REACH.
[2024-07-13 19:39] VITALS: BP 123/77
[2024-07-14 02:49] VITALS: BP 98/63
--- NOTE | 2024-07-14 03:59 | NUR ---
SHIFT SUMMARY PATIENT IS ALERT AND ORIENTED X2. PATIENT HAS HAD NO ACUTE EVENTS THIS SHIFT. PATIENT HAS BEEN A 2X MAX ASSIST. PATIENT HAS HAD 1:1 SITTER ALL SHIFT WITH NO EVENTS. PATIENT HAS HAD NO COMPLAINTS OF PAIN, NAUSEA, SOB OR VOMITTING THIS SHIFT. PATIENT HAS BEEN PLEASENT AND COOPERATIVE THIS SHIFT. PATIENT HAS BEEN SLEEPING MOST OF SHIFT. BED IN LOCKED AND LOWEST POSITION. BED ALARM IS ON. SITTER IN PLACE.
[2024-07-14 06:11] LABS: Hemoglobin 8.3 g/dL (11.5-16.0)
[2024-07-14 06:56] LABS: Albumin, Blood 1.8 g/dL (3.4-5.0); Anion Gap 11 mmol/L (3-11); Blood Urea Nitrogen 13 mg/dL (8-24); Bun/Creatinine Ratio 15.5 (12.0-20.0); CO2, Blood 22 mmol/L (21-32); Calcium, Blood 8.5 mg/dL (8.5-10.1); Chloride, Blood 111 mmol/L (98-108); Creatinine, Blood 0.84 mg/dL (0.40-1.00); Glomerular Filtration Rate 80 (60-); Glucose, Blood 82 mg/dL (70-99); Magnesium, Blood 1.9 mg/dL (1.6-2.4); Potassium, Blood 3.9 mmol/L (3.5-5.5); Sodium, Blood 140 mmol/L (136-145)
[2024-07-14 07:32] VITALS: BP 102/71
[2024-07-14] MEDS ORDERED: Furosemide 20 MG Tab PO SCH (09:00)
[2024-07-14] MEDS ORDERED: Furosemide 10 MG / ML 2ML Vial IV ONE (15:50)
[2024-07-14 15:53] VITALS: BP 108/62
--- NOTE | 2024-07-14 16:13 | NUR ---
CHARGE NURSE NOTE THIS NURSE CALLED INTO PT ROOM WITH DR POZO AT 1608 ON 07/14/23. PT WAS SITTING UP IN RECLINER WITH FEET ON THE FLOOR. PT HAD COMPRESSION SOCKS ON. PT FEET HAD PITTING EDEMA 4+. DR POZO PLACED ORDERS. HE ALSO GAVE VERBAL ORDERS TO GIVE THE LASIX AND POTASSIUM PER EMAR ORDERED X1 DOSE AND THEN TO DC THE ORDER.
[2024-07-14] MEDS ORDERED: PANT40 PO (16:48)
[2024-07-14] MEDS ORDERED: B-1100 M1 PO (16:48)
[2024-07-14] MEDS ORDERED: QUET100 PO (16:48)
[2024-07-14] MEDS ORDERED: FURO20 PO (16:49)
[2024-07-14] MEDS ORDERED: POTA10T PO (16:49)
--- NOTE | 2024-07-14 17:57 | NUR ---
SHIFT SUMMARY PT A&O TO SELF AND PLACE, ABLE TO FOLLOW DIRECTIONS. PT REFUSED SNF. PT SEEN BY HOSPITALIST AND DR POZO. PT VSS, NO COMPLAINTS OF CP/PRESSURE OR SOB. PT EDEMA WORSENED WHEN LEGS WERE NOT AT HEART LEVEL AND WENT FROM 2+ TO 4+ EDEMA. LEGS ELEVATED ONCE MORE. PT TO BE DISCHARGED, RIDE COORDINATED, EDUCATION GIVEN TO PT, BELONGINGS OOR. NO ACUTE EVENTS DURING SHIFT. PT D/[facility].
[2024-07-14] MEDS ORDERED: Lactobacil 2-S.Thermo-Bifido 1 1 Cap PO SCH (21:00)
== END 2024-07-14 17:29 | disposition home health service (06) | DRG 871 ==
LOC: ER 12:30 → ERHOLD 19:52 → PCU 19:52 → ICUE 19:52 → MEDS 19:52 → ICUE 21:16 → PCU 07-09 23:59 → MEDS 07-10 16:19
PROVIDERS: Emergency Medicine; Internal Medicine; Internal Medicine Critical Care Medicine; Internal Medicine Nephrology; Nurse Practitioner Acute Care; ADMIT Student in an Organized Health Care Education/Training Program
PROC: 30233N1 Transfusion of Nonautologous Red Blood Cells into Peripheral Vein, Percutaneous Approach (ICD-10-PCS; 2024-07-08)
PROC: 0T9B70Z Drainage of Bladder with Drainage Device, Via Natural or Artificial Opening (ICD-10-PCS; 2024-07-08)
PROC: 30233J1 Transfusion of Nonautologous Serum Albumin into Peripheral Vein, Percutaneous Approach (ICD-10-PCS; 2024-07-08)
PROC: 3E033XZ Introduction of Vasopressor into Peripheral Vein, Percutaneous Approach (ICD-10-PCS; principal; 2024-07-09)
PROC: 3E03329 Introduction of Other Anti-infective into Peripheral Vein, Percutaneous Approach (ICD-10-PCS; 2024-07-09)
DX: A41.1 Sepsis due to other specified staphylococcus (principal); R57.8 Other shock; N39.0 Urinary tract infection, site not specified; E87.1 Hypo-osmolality and hyponatremia; K76.6 Portal hypertension; E87.4 Mixed disorder of acid-base balance; N17.9 Acute kidney failure, unspecified; F10.239 Alcohol dependence with withdrawal, unspecified; K92.2 Gastrointestinal hemorrhage, unspecified; D50.0 Iron deficiency anemia secondary to blood loss (chronic); R65.20 Severe sepsis without septic shock; K70.31 Alcoholic cirrhosis of liver with ascites; S09.90XA Unspecified injury of head, initial encounter; E83.51 Hypocalcemia; I12.9 Hypertensive chronic kidney disease with stage 1 through stage 4 chronic kidney disease, or unspecified chronic kidney disease; N18.9 Chronic kidney disease, unspecified; D63.1 Anemia in chronic kidney disease; F41.9 Anxiety disorder, unspecified; E88.89 Other specified metabolic disorders; E16.2 Hypoglycemia, unspecified; M79.606 Pain in leg, unspecified; M54.9 Dorsalgia, unspecified; E83.42 Hypomagnesemia; E83.39 Other disorders of phosphorus metabolism; R25.1 Tremor, unspecified; K76.0 Fatty (change of) liver, not elsewhere classified; F10.229 Alcohol dependence with intoxication, unspecified; Z79.811 Long term (current) use of aromatase inhibitors; Z79.899 Other long term (current) drug therapy; W19.XXXA Unspecified fall, initial encounter
CPT/HCPCS: 0241U; 36415; 36430; 70450; 71045; 74177; 80047; 80048; 80053; 80069; 80074; 80320; 81001; 82140; 82533; 82550; 82607; 82728; 82746; 82803; 82947; 83540; 83550; 83605; 83735; 83880; 83930; 84100; 84145; 84295; 84300; 84443; 84550; 85014; 85018; 85025; 85027; 85610; 86850; 86900; 86901; 86923; 87040; 87077; 87086; 87186; 93005; 93010; 94762; 96361; 96365-59; 96366; 96367; 96375; 97110; 97161; 97165; 97530; 99285-25; A9270; J0612; J0696; J0881; J1630; J1940; J2060; J2405; J2470; J2560; J3411; J3475; J7030; J7042; J7050; J7060; J7799; P9016; P9047; Q9967

== ENCOUNTER 2024-07-16 10:18 | Inpatient (IN) | payer OTHER ==
[~2024-07-16] VITALS: Ht 167.6 cm; Wt 68.0 kg
[~2024-07-16 10:18] MED LIST changes: +B-1100 M1 PO; +FURO20 PO; +LISI20 PO; +PANT40 PO; +POTA10T PO; +QUET100 PO
[2024-07-16 12:10] LABS: BASOPHILS ABSOLUTE AUTO 0.08 K/mm3 (0.00-0.23); BASOPHILS PERCENT AUTO 1 % (0-2); EOSINOPHILS ABSOLUTE AUTO 0.04 K/mm3 (0.00-0.68); EOSINOPHILS PERCENT AUTO 1 % (0-6); Hematocrit 34.9 % (33.0-51.0); Hemoglobin 11.4 g/dL (11.5-16.0); IMMATURE GRAN ABSOLUTE AUTO 0.07 K/mm3 (0.00-0.10); IMMATURE GRAN PERCENT AUTO 1 % (0-1); LYMPHOCYTES PERCENT AUTO 17 % (21-46); MONOCYTES ABSOLUTE AUTO 0.96 K/mm3 (0.16-1.47); MONOCYTES PERCENT AUTO 13 % (4-13); Mean Corpuscular HGB 36.1 pg (26.0-34.0); Mean Corpuscular HGB Conc 32.7 g/dL (31.5-36.5); Mean Corpuscular Volume 110 fL (80-100); Mean Platelet Volume 10.6 fL (9.1-12.4); NEUTROPHILS ABSOLUTE AUTO 5.15 K/mm3 (1.96-9.15); NEUTROPHILS PERCENT AUTO 68 % (41-73); Platelet Count 224 K/mm3 (150-400); RDW Coefficient Variation 19.7 % (11.7-14.2); RDW Standard Deviation 80.7 fL (35.1-46.3); Red Blood Cell Count 3.16 M/mm3 (3.80-5.20)
[2024-07-16 12:35] LABS: Alanine Aminotransfer (ALT/SGP 33 U/L (12-78); Albumin, Blood 2.3 g/dL (3.4-5.0); Albumin/Globulin Ratio 0.5 (0.8-1.8); Alk Phos 303 U/L (50-136); Anion Gap 8 mmol/L (3-11); Aspartate Aminotrans (AST/SGOT 97 U/L (12-37); Bilirubin, Total 2.2 mg/dL (0.1-1.0); Blood Urea Nitrogen 16 mg/dL (8-24); Bun/Creatinine Ratio 22.4 (12.0-20.0); CO2, Blood 27 mmol/L (21-32); Calcium, Blood 9.3 mg/dL (8.5-10.1); Chloride, Blood 109 mmol/L (98-108); Creatinine, Blood 0.71 mg/dL (0.40-1.00); Ethanol (Alcohol), Blood, Med <3 mg/dL; Globulin, Blood 4.3 g/dL (2.2-4.0); Glomerular Filtration Rate 98 (60-); Glucose, Blood 89 mg/dL (70-99); Potassium, Blood 4.2 mmol/L (3.5-5.5); Sodium, Blood 140 mmol/L (136-145); Total Protein, Blood 6.6 g/dL (6.4-8.2)
[2024-07-16] MEDS ORDERED: Lactated Ringer's 1,000 ML IV SCH ×2 (13:55→14:50)
[2024-07-16] MEDS ORDERED: FLU VACC TS2024-25(6MOS UP)/PF 45 MCG/0.5 ML SYRINGE IM SCH (14:00)
[2024-07-16] MEDS ORDERED: Lactated Ringer's 1,000 ML IV ONE ×2 (14:01→14:33)
[2024-07-16] MEDS ORDERED: ZESTRIL40 M2 PO (17:05)
[2024-07-16 17:12] VITALS: BP 108/67
--- NOTE | 2024-07-16 17:43 | NUR ---
ADMIT PT ARRIVED TO ICU 14 VIA GURNEY, TRANSFERRED TO ICU BED. PT ALERT, ANSWERING QUESTIONS APPROPRIATELY, SOMETIMES A DELAY IN ANSWERS. TEMP WHITFIELD READING 93.9F, SUSANNE VANEGAS RESTARTED. IV FLUIDS INFUSING. LUNGS CLEAR, RA, SR, MAP 80. WHITFIELD DRAINING CL YELLOW URINE. CALL LIGHT IN REACH.
[2024-07-16 18:00] VITALS: BP 101/60
[2024-07-16] MEDS ORDERED: ChlordiazePOXIDE 25 MG Cap PO PRN (19:10)
[2024-07-16] MEDS ORDERED: LORazepam 2 MG/ML 1ML Injection IV PRN (19:10)
[2024-07-16] MEDS ORDERED: LORazepam 2 MG/ML 1ML Injection IM PRN (19:10)
--- NOTE | 2024-07-16 20:01 | NUR ---
ASSUMPTION OF CARE: ASSUMED CARE OF PT AT 1900. PT OPENS EYES TO VERBAL STIMULI, ATTEMPTS TO ANSWER QUESTIONS BUT MUMBLES AND IS VERY SOMNOLENT. PT FALLS ASLEEP DURING CONVERSATION. ABLE TO STATE HER NAME AND NOTHING ELSE. PUPILS EQUAL AND REACTIVE, JAUNDICE NOTED BILATERALLY. MOVES ALL EXTRMEMTIES BUT IS NOTICEABLY WEAK AND SLOW TO RESPOND. PT ON RA WITH SPO2 MID 90'S. LUNGS CLEAR. SALES CORRESPONDENT IN PLACE, SR WITH HR 90'S. SBP 90-100'S. MAP >65. TEMP WHITFIELD IN PLACE, DRAINING TO GRAVITY. TEMP 97.[address] BEAR HUGGER IN PLACE. NO BM YET. LR INFUSING AT 75 ML/HR. PIVS INTACT TO BILATERAL AC'S. AWAITING TRANSFER TO MEDICAL FLOOR ROOM 343. BED LOW AND LOCKED, CALL LIGHT IN REACH.
--- NOTE | 2024-07-16 21:31 | NUR ---
TRANSFER TO MEDICAL: PT TAKEN TO ROOM 343 VIA BED AT 2114. REPORT GIVEN TO JOSETTE. PT HAD NO BELONGINGS WITH HER IN ICU. PT SLID ACROSS TO MED FLOOR BED WITH NO ISSUES.
--- NOTE | 2024-07-16 22:16 | NUR ---
TRANSFER NOTE FOR 2119 REPORT WAS RECEIVED FROM THE ICU NURSE. PT WAS BROUGHT UP TO ROOM 343 ON A GURNEY AND TRANSFERRED TO BED. PT ALERT ORIENTED TO SELF AND PLACE SHE HAS A WHITFIELD CATHETER PATENT DRAINING TIMI URINE. NO C/O PAIN ON ADMIT PT WAS ORIENTED TO ROOM AND STAFF. SHE REMAINS ON TELEMETRY AT [facility] AT A RATE OF 96. NO S/S ETOH AND CIWA IS 0. SHE REMAINS NPO AND VSS ON RA SATTING AT 97%. SHE HAS RED EXCORIATED AREAS TO HER LT BUTTOCKS, SORE ON THE BRIDGE OF HER NOSE, REDNESS TO LT CHEEK AND BRUISE TO THE LT SHOULDER. SHE REMAINS JAUNDICED. RESTING IN BED AT THIS TIME WITH BED ALARM ON AND CALL LIGHT IN REACH
[2024-07-17 02:31] VITALS: BP 108/64
--- NOTE | 2024-07-17 03:15 | NUR ---
SHIFT SUMMARY PT ALERT ORIENTED TO SELF AND PLACE BUT VERY GROGGY AND DRIFTS RIGHT BACK OFF TO SLEEP. REMAINS WITH A WHITFIELD CATHETER DRAINING TIMI URINE. INC OF BOWEL NO C/O PAIN THIS SHIFT. CIWA IS ZERO. REMAINS ON TELEMETRY AT [facility] AT A RATE OF 96. VSS ON RA SATTING AT 97%. SHE HAS A ABRASION TO BRIDGE OF HER NOSE, REDNESS TO LT CHEEK AND BRUISE TO LT SHOULDER. SHES KEPT TURNED AND REPOSITIONED BY STAFF. REMAINS NPO R/T HAVING A HARD TIME STAYING AWAKE. REMAINS ON LR AT 75. TEMP IS NOW AT 98.3. REMAINS JAUNDICED. RESTING IN BED AT THIS TIME WITH CALL LIGHT IN REACH AND BED ALARM ON
[2024-07-17] MEDS ORDERED: Lactated Ringer's 1,000 ML IV SCH (05:55)
[2024-07-17 07:25] VITALS: BP 94/55
[2024-07-17] MEDS ORDERED: Enoxaparin 40 MG/0.4 ML SYR SC SCH (09:00)
[2024-07-17 15:28] VITALS: BP 123/76
[2024-07-17 15:45] LABS: BASOPHILS ABSOLUTE AUTO 0.15 K/mm3 (0.00-0.23); BASOPHILS PERCENT AUTO 2 % (0-2); EOSINOPHILS ABSOLUTE AUTO 0.09 K/mm3 (0.00-0.68); EOSINOPHILS PERCENT AUTO 1 % (0-6); Hematocrit 30.8 % (33.0-51.0); Hemoglobin 10.1 g/dL (11.5-16.0); IMMATURE GRAN ABSOLUTE AUTO 0.06 K/mm3 (0.00-0.10); IMMATURE GRAN PERCENT AUTO 1 % (0-1); LYMPHOCYTES ABSOLUTE AUTO 2.46 K/mm3 (0.84-5.20); LYMPHOCYTES PERCENT AUTO 30 % (21-46); MONOCYTES ABSOLUTE AUTO 0.99 K/mm3 (0.16-1.47); MONOCYTES PERCENT AUTO 12 % (4-13); Mean Corpuscular HGB 35.6 pg (26.0-34.0); Mean Corpuscular HGB Conc 32.8 g/dL (31.5-36.5); Mean Corpuscular Volume 109 fL (80-100); Mean Platelet Volume 10.9 fL (9.1-12.4); NEUTROPHILS ABSOLUTE AUTO 4.36 K/mm3 (1.96-9.15); NEUTROPHILS PERCENT AUTO 54 % (41-73); Platelet Count 272 K/mm3 (150-400); RDW Coefficient Variation 19.6 % (11.7-14.2); RDW Standard Deviation 79.1 fL (35.1-46.3); Red Blood Cell Count 2.84 M/mm3 (3.80-5.20); White Blood Cell Count 8.11 K/mm3 (4.00-11.30)
[2024-07-17 16:09] LABS: Albumin, Blood 2.1 g/dL (3.4-5.0); Albumin/Globulin Ratio 0.5 (0.8-1.8); Bun/Creatinine Ratio 17.5 (12.0-20.0); Calcium, Blood 8.8 mg/dL (8.5-10.1); Creatinine, Blood 0.86 mg/dL (0.40-1.00); Globulin, Blood 4.1 g/dL (2.2-4.0); Potassium, Blood 4.2 mmol/L (3.5-5.5); Total Protein, Blood 6.2 g/dL (6.4-8.2)
--- NOTE | 2024-07-17 18:54 | NUR ---
SUMMARY- PT A/O X3, FORGETFUL TO DETAILS. PT HAS BEEN ON BEDREST AND DEPENDANT, TURNED Q2, ZINC CREAM TO REDNESS/EXCORIATION ROJELIO RECTAL. PT WAS OBTUNDED THIS AM AND TOOK NOXIOUS STIM TO GET EYES TO OPEN. THE SHIFT HAS PROGRESSED, PT HAS WOKEN UP AND IS MORE VERBAL AND INTERACTIVE. SHE WAS ASKING FOR FOOD AND FLUIDS. TOLERATING REG DIET. PT HAD A WHITFIELD PLACED IN ED, DID NOT HAVE AN ORDER. TOOK WHITFIELD OUT 1800. WILL DANK FOR VOID. PT HAD X LG LOOSE JAMA STOOL THIS AM. WILL REPORT TO NOC RN
[2024-07-17 19:16] VITALS: BP 122/73
[2024-07-17] MEDS ORDERED: Protein Supplement 30 ML UD PO SCH (21:00)
[2024-07-18 03:01] VITALS: BP 109/62
--- NOTE | 2024-07-18 04:14 | NUR ---
PTS WHITFIELD CATHETER WAS REMOVED LAST NIGHT AT 1800. PT HAS BEEN UNABLE TO VOID AFTER WHITFIELD WAS REMOVED. DID A BLADDER SCAN AND SHE HAS OVER 504. CALLED AND HE GAVE A ORDER TO REPLACE THE WHITFIELD CATHETER.
--- NOTE | 2024-07-18 05:28 | NUR ---
SHIFT SUMMARY PT ALERT ORIENTED TO SELF ONLY WITH CONFUSION SHE HAD HER WHITFIELD REMOVED LAST NIGHT AT 1800 AND WE KEPT MONITORING HER TO SEE IF SHE WOULD VOID. AT 0430 AFTER 10 HRS OF NOT VOIDING WE DID A BLADDER SCAN ON HER AND IT WAS OVER 504. CALLED MD AND RECEIVED A ORDER TO REPLACE THE WHITFIELD. WHITFIELD WAS REPLACED AND SHE INSTANTLY HAD 500ML OF TIMI URINE OUT. SHE REMAINS ON LR AT 75. NO C/O PAIN THIS SHIFT. VSS ON RA SATTING AT 99%. CONTINUES WITH A SORE TO THE BRIDGE OF HER NOSE AND EXCORIATION WITH REDNESS TO BUTTOCKS. SHES KEPT TURNED AND REPOSITIONED. RESTING IN BED AT THIS TIME WITH CALL LIGHT IN REACH
[2024-07-18 05:46] LABS: BASOPHILS ABSOLUTE AUTO 0.11 K/mm3 (0.00-0.23); BASOPHILS PERCENT AUTO 2 % (0-2); EOSINOPHILS ABSOLUTE AUTO 0.13 K/mm3 (0.00-0.68); EOSINOPHILS PERCENT AUTO 2 % (0-6); Hematocrit 27.6 % (33.0-51.0); Hemoglobin 9.2 g/dL (11.5-16.0); IMMATURE GRAN ABSOLUTE AUTO 0.06 K/mm3 (0.00-0.10); IMMATURE GRAN PERCENT AUTO 1 % (0-1); LYMPHOCYTES ABSOLUTE AUTO 2.19 K/mm3 (0.84-5.20); LYMPHOCYTES PERCENT AUTO 31 % (21-46); MONOCYTES ABSOLUTE AUTO 1.02 K/mm3 (0.16-1.47); MONOCYTES PERCENT AUTO 15 % (4-13); Mean Corpuscular HGB 35.7 pg (26.0-34.0); Mean Corpuscular HGB Conc 33.3 g/dL (31.5-36.5); Mean Corpuscular Volume 107 fL (80-100); Mean Platelet Volume 10.9 fL (9.1-12.4); NEUTROPHILS ABSOLUTE AUTO 3.49 K/mm3 (1.96-9.15); NEUTROPHILS PERCENT AUTO 50 % (41-73); Platelet Count 244 K/mm3 (150-400); RDW Standard Deviation 74.8 fL (35.1-46.3); Red Blood Cell Count 2.58 M/mm3 (3.80-5.20)
[2024-07-18 06:17] LABS: Albumin, Blood 1.8 g/dL (3.4-5.0); Albumin/Globulin Ratio 0.5 (0.8-1.8); Bilirubin, Total 1.6 mg/dL (0.1-1.0); Bun/Creatinine Ratio 17.7 (12.0-20.0); Calcium, Blood 8.2 mg/dL (8.5-10.1); Creatinine, Blood 0.79 mg/dL (0.40-1.00); Globulin, Blood 3.4 g/dL (2.2-4.0); Potassium, Blood 3.5 mmol/L (3.5-5.5); Total Protein, Blood 5.2 g/dL (6.4-8.2)
[2024-07-18 08:20] VITALS: BP 104/65
[2024-07-18] MEDS ORDERED: Thiamine HCl 100 MG Tab PO SCH (09:00)
[2024-07-18] MEDS ORDERED: Nicotine 21 MG PATCH TOP ONE (12:15)
--- NOTE | 2024-07-18 18:37 | NUR ---
SHIFT SUMMARY PT CONT LEVEL OF CARE WITH NO ACUTE CHANGES NOTED. PT NOTED TO BE A&OX1-2 THIS SHIFT WITH CONFUSION NOTED. PT NOTED TO WORK WITH THERAPY THIS SHIFT WHOM RECOMMENDED PT BE AN ASSIST X2 AND DANGLE OFF BED. PT NOTED TO BECOME AGITATED AND WORKED UP LATER THIS SHIFT AND WAS GIVEN PRN MEDICATION PER CIWA.
[2024-07-18 20:26] VITALS: BP 129/76
[2024-07-19 04:28] VITALS: BP 107/64
--- NOTE | 2024-07-19 05:36 | NUR ---
WEEKLY SUMMARY PT ALERT ORIENTED TO SELF ONLY WITH S/S WITHDRAWLS. HER CIWAS HAVE BEEN BETWEEN 9-15. SHES BEEN VERY ANXIOUS WITH AUDITORY AND VISUAL HALLUCINATIONS. SHE HAS A LOT OF ANXIETY AND CAN BE VERY IRATE WITH STAFF. SHE CONTINUES TO TRY TO GET UP OUT OF BED BY HERSELF STATING THAT SHES LEAVING. SHES BEEN HAVING INCREASED TREMORS. BED ALARM IS ON AND CALL LIGHTS IN REACH. SHE RECEIVED LIBRIUM AND ATIVAN. SHE REMAINS ON TELEMETRY AT [facility] AT A RATE OF 73. SHE REMAINS ON LR AT 75. HER APPETITE HAS BEEN VERY POOR AND SHES ONLY EATING AND DRINKING SMALL AMOUNTS. SHE HAS A WHITFIELD CATH DRAINING DARK TIMI URINE. VSS ON RA SATTING AT 99%. RESTING IN BED AT THIS TIME WITH CALL LIGHT IN REACH
[2024-07-19 06:30] LABS: BASOPHILS ABSOLUTE AUTO 0.12 K/mm3 (0.00-0.23); BASOPHILS PERCENT AUTO 2 % (0-2); EOSINOPHILS ABSOLUTE AUTO 0.14 K/mm3 (0.00-0.68); EOSINOPHILS PERCENT AUTO 2 % (0-6); Hematocrit 29.8 % (33.0-51.0); Hemoglobin 9.5 g/dL (11.5-16.0); IMMATURE GRAN ABSOLUTE AUTO 0.08 K/mm3 (0.00-0.10); IMMATURE GRAN PERCENT AUTO 1 % (0-1); LYMPHOCYTES ABSOLUTE AUTO 2.14 K/mm3 (0.84-5.20); LYMPHOCYTES PERCENT AUTO 28 % (21-46); MONOCYTES ABSOLUTE AUTO 1.26 K/mm3 (0.16-1.47); MONOCYTES PERCENT AUTO 16 % (4-13); Mean Corpuscular HGB 34.4 pg (26.0-34.0); Mean Corpuscular HGB Conc 31.9 g/dL (31.5-36.5); Mean Corpuscular Volume 108 fL (80-100); Mean Platelet Volume 11.2 fL (9.1-12.4); NEUTROPHILS ABSOLUTE AUTO 4.05 K/mm3 (1.96-9.15); NEUTROPHILS PERCENT AUTO 52 % (41-73); NRBC ABSOLUTE 0.02 K/mm3 (0.00-0.02); NRBC Auto 0.3 /100 WBC (0.0-0.2); Platelet Count 252 K/mm3 (150-400); RDW Coefficient Variation 18.4 % (11.7-14.2); RDW Standard Deviation 73.9 fL (35.1-46.3); Red Blood Cell Count 2.76 M/mm3 (3.80-5.20); White Blood Cell Count 7.79 K/mm3 (4.00-11.30)
[2024-07-19 06:52] LABS: Albumin, Blood 1.8 g/dL (3.4-5.0); Albumin/Globulin Ratio 0.5 (0.8-1.8); Bilirubin, Total 1.6 mg/dL (0.1-1.0); Bun/Creatinine Ratio 18.5 (12.0-20.0); Calcium, Blood 8.4 mg/dL (8.5-10.1); Creatinine, Blood 0.65 mg/dL (0.40-1.00); Globulin, Blood 3.5 g/dL (2.2-4.0); Potassium, Blood 3.4 mmol/L (3.5-5.5); Total Protein, Blood 5.3 g/dL (6.4-8.2)
[2024-07-19 07:59] VITALS: BP 110/65
[2024-07-19] MEDS ORDERED: Nicotine 21 MG PATCH TOP SCH (09:00)
--- NOTE | 2024-07-19 18:01 | NUR ---
SHIFT SUMMARY PT CONT LEVEL OF CARE. PT NOTED TO BE A&O TO SELF ONLY WITH HALLUCINATION NOTED ALONG WITH CONFUSION. PT HAS BEEN MEDICATED PER CIWA THIS SHIFT FOR SCORES BETWEEN 11-15. PT NOTED TO HAVE PULLED OUT IV AND WHITFIELD CATH THIS SHIFT AROUND 1100. PT NOTED TO HAVE INCONT OF BLADDER AROUND 1430. PT BLADDER SCANNED AT 1700 WITH 179 NOTED IN BLADDER. WCTM PT FOR RETENTION AND STRAIGHT CATH IF NEEDED PER PROTOCOL.
[2024-07-19 18:46] VITALS: BP 120/64
[2024-07-19 20:53] VITALS: BP 138/86
[2024-07-20 03:41] VITALS: BP 113/68
--- NOTE | 2024-07-20 05:25 | NUR ---
SHIFT SUMMARY NOC PT A/O TO SELF, LETHARGIC T/O SHIFT AND SLEPT FOR ENTIRETY. VSS. LIQUACEL HELD DUE TO LETHARGY. PT SCORED CIWA 3. LR INFUSING @ 75 ML/HR. PT BLADDER SCANNED PER ORDER AND 383 ML SCANNED, BELOW PARAMETER FOR STRAIGHT CATH. PT CURRENTLY IS AWAITING SNF PLACEMENT HERE IN [facility]. PT CURRENTLY RESTING WITH BED ALARM ON, BED IN LOWEST POSITION, AND CALL LIGHT WITHIN REACH.
[2024-07-20 07:15] VITALS: BP 96/64
[2024-07-20 09:19] VITALS: BP 131/81
--- NOTE | 2024-07-20 09:54 | NUR ---
CALLED AND SPOKE WITH DR BEASLEY D/T CHANGE IN PT VERY DIFFICULT TO AROUSE, SLURRED SPEECH, DIFFICULTY SWALLOWING. RECEIVED ORDERS TO MAKE PT NPO AND HOLD ORAL MEDICATION TILL ST EVALS AND TREATS PT, AND FOR [facility] TO BE DRAWN.
[2024-07-20 15:25] VITALS: BP 131/77
--- NOTE | 2024-07-20 18:15 | NUR ---
SHIFT SUMMARY PT NOTED TO BE LETHARGIC THIS MORNING AND WAS ONLY AROUSED BY PAIN FROM STURNAL RUM WITH GRUTTING NOTED. PT NOTED TO REGAIN MENTATION THROUGHOUT THE SHIFT AND BE MORE AROUSABLE AND AWAKE. BY END OF SHIFT NOTED TO BE A&O TO SELF WITH CONFUSION NOTED. PT NOTED TO VOID THIS SHIFT AND HAVE POST VOID BLADDER SCANS DONE. PT NOTED TO BE STRAIGHT CATH AROUND 1600 D/T BLADDER SCAN NOTED TO HAVE 461ML.
[2024-07-20 21:36] VITALS: BP 126/78
[2024-07-21 02:28] VITALS: BP 130/85
--- NOTE | 2024-07-21 02:54 | NUR ---
BLADDER SCAN PERFORMED PER ORDERS AND 567 ML FOUND. PT STRAIGHT CATH PER PROTOCOL AND 325 ML OUT. UPON RESCAN PT FOUND TO HAVE 650 ML IN, HOSPITALIST NOTIFIED AND ORDER FOR WHITFIELD CATHETER INITIATED.
--- NOTE | 2024-07-21 05:32 | NUR ---
SHIFT SUMMARY NOC PT A/O X PERSON/PLACE, ABLE TO FOLLOW SIMPLE COMMANDS. VSS. PT HAS BEEN ADAMANT T/O SHIFT THAT THEY WANT TO GO HOME NOW. PT EDUCATED THAT THEY ARE CURRENTLY TOO WEAK TO GO HOME AND WILL REQUIRE SNF REHAB BEFORE BEING ABLE TO GO HOME SAFELY. PT IS NPO PENDING ST EVALUATION DUE TO CHOKING ON WATER DURING DAY SHIFT YESTERDAY. LR INFUSING @ 75 ML/HR. BLADDER SCANNED SHOWED 567 ML, STRAIGHT CATH PERFORMED AND 325 ML OUT. RESCAN SHOWED 650 ML, HOSPITALIST NOTIFIED AND WHITFIELD PLACED FOR RETENTION. PT CURRENTLY RESTING WITH BED ALARM ON, BED IN LOWEST POSITION, AND CALL LIGHT WITHIN REACH.
[2024-07-21 07:53] VITALS: BP 136/85
[2024-07-21 15:29] VITALS: BP 134/80
--- NOTE | 2024-07-21 17:51 | NUR ---
SHIFT SUMMARY PT CONT LEVEL OF CARE. PT NOTED TO BE A&O X2-3 AND MAX ASSIST. PT NOTED TO BE INCONT OF BOWEL X2 THIS SHIFT. PT WAS SEEN BY ST THIS SHIFT AND CHANGED TO A PUREE DIET, NECTURE THICKENED LIQUIDS, NO STRAWS, MEDS CRUSHED IN APPLESAUCE. PT CONT TO REFUSE TO EAT BUT NOTED TO DRINK SOME OF HER ENSURE. PT MOM CALLED AND RECEIVED UPDATE FROM THIS NURSE. PT MOM STATED THEY WOULD BE COMING TOMORROW [place]OUND [place] AND THAT THEY ARE GOING TO BE TALKING WITH STEAM ROLLER OPERATOR RE: JUAN JOSÉ PLAN.
[2024-07-21 19:50] VITALS: BP 132/71
[2024-07-22 05:38] VITALS: BP 125/81
--- NOTE | 2024-07-22 06:17 | NUR ---
SHIFT SUMMARY NOC PT A/O TO SELF AND PLACE. PLEASANTLY CONFUSED, BUT COOPERATIVE WITH CARE. NO ACUTE EVENTS TO REPORT. PT HAD INC LOOSE BM AT BEGINNING OF SHIFT. WHITFIELD IN PLACE FOR RETENTION DRAINING TIMI URINE. PT STILL CALLING OUT THAT THEY WANT TO GO BACK HOME NOW. PT IS EXTREMELY DECONDITIONED AND IS UNABLE TO MOVE ON OWN. PT HAS RED BLANCHABLE SPOT IN BETWEEN GLUTEAL FOLDS AND BARRIER CREAM APPLIED. PT PARENTS WILL BE COMING FROM [place] TODAY AROUND NO[place] TO DISCUSS SNF PLACEMENT AND LTC MEDICAID, WELL NEED FOR GUARDIANSHIP. LR INFUSING @ 75 ML/HR. PT CURRENTLY RESTING WITH BED ALARM ON, BED IN LOWEST POSITION, AND CALL LIGHT WITHIN REACH.
[2024-07-22 07:37] VITALS: BP 121/78
[2024-07-22 12:14] VITALS: BP 120/75
[2024-07-22 15:14] VITALS: BP 122/89
--- NOTE | 2024-07-22 17:17 | NUR ---
SHIFT SUMMARY PT AOX2, DANGLE AT THE BS AT THIS TIME. PT DOES NOT CALL. SHE WILL OFTEN FIDGET WITH HER WHITFIELD. BA ON. LITTLE APPETITE, MOSTLY DRINKING ENSURES FROM HER TRAY BUT REQUIRES ASSISTANCE. BM THIS SHIFT. FAMILY AT THE BS THIS SHIFT. GUARDIANSHIP PAPERS IN HER CHART. NO COMPLAINTS OR ACUTE CHANGES. PT REMAINS CONFUSED AND DELUSIONAL, REQUESTING TO "GET IN THE TRUCK AND GO". REPOSITIONED THROUGHOUT THE SHIFT, Q2. CALL LIGHT WITHIN REACH, BEDL OCKED AND IN THE LOWEST POSITION. WILL REPORT TO ONCOMING NURSE.
[2024-07-22 19:17] VITALS: BP 129/80
[2024-07-23 02:33] VITALS: BP 127/75
--- NOTE | 2024-07-23 03:01 | NUR ---
SHIFT SUMMARY PT IS A/O X2, PLEASANTLY CONFUSED AND COOPERATIVE WITH CARE. WHITFIELD DRAINING TO GRAVITY, YELLOW COLOR URINE. LR INFUSING@75MLS/HR. NO ACUTE EVENTS DURING THIS SHIFT. BED ALARM FOR SAFETY. REPOSITIONED Q2HRS T/O THIS SHIFT. BED AT THE LOWEST POSITION, CALL LIGHT W/I REACH. FREQUENT CHECKS BY THE BEDSIDE. NO PO INTAKE DURING THIS SHIFT.
[2024-07-23 08:11] VITALS: BP 109/68
[2024-07-23 15:48] VITALS: BP 113/69
--- NOTE | 2024-07-23 18:24 | NUR ---
SHIFT SUMMARY PT AOX1, CONFUSED THROUGHOUT THE SHIFT WITH MOMENTS OF LUCIDITY. DOES NOT CALL, OFTEN CALLS OUT IF NEEDS ANYTHING. APPETITE INCREASING. WHITFIELD IN PLACE AND DRAINING. RESPOSITIONED Q2. SMALL BM THIS SHIFT. NO ACUTE CHANGES. CALL LIGHT WITHIN REACH, BED LOCKED AND IN THE LOWEST POSITION. WILL REPORT TO ONCOMING NURSE.
[2024-07-23 20:19] VITALS: BP 124/69
[2024-07-24 04:04] VITALS: BP 125/77
--- NOTE | 2024-07-24 04:23 | NUR ---
PATIENT IS AO3. PATIENT WAS PULLING AT WHITFIELD CATHETER AT BEGINNING OF SHIFT, PANTS WERE PLACED ON PATIENT, WHICH WAS A SUCCESSFUL INTERVENTION. PATIENT WANTED CIGARETTES THROUGHOUT SHIFT, WAS OFFERED NICOTINE PATCH, WHICH PATIENT REFUSED. PATIENT OTHERWISE MADE NEEDS KNOWN. NO ACUTE CHANGES. PATIENT'S BED LOCKED IN LOWEST POSITION.
[2024-07-24 05:31] LABS: Hematocrit 31.1 % (33.0-51.0); Hemoglobin 10.1 g/dL (11.5-16.0); Mean Corpuscular HGB 34.8 pg (26.0-34.0); Mean Corpuscular HGB Conc 32.5 g/dL (31.5-36.5); Mean Corpuscular Volume 107 fL (80-100); Mean Platelet Volume 11.5 fL (9.1-12.4); Platelet Count 283 K/mm3 (150-400); RDW Standard Deviation 71.4 fL (35.1-46.3); White Blood Cell Count 8.33 K/mm3 (4.00-11.30)
[2024-07-24 06:20] LABS: Bun/Creatinine Ratio 21.7 (12.0-20.0); Calcium, Blood 8.4 mg/dL (8.5-10.1); Creatinine, Blood 0.65 mg/dL (0.40-1.00); Potassium, Blood 3.5 mmol/L (3.5-5.5)
[2024-07-24 07:31] VITALS: BP 117/67
[2024-07-24 16:10] VITALS: BP 113/79
--- NOTE | 2024-07-24 17:19 | NUR ---
SHIFT SUMMARY PT AOX1, SELF. BA ON, CAN ATTEMPT TO SLIDE OUT OF THE BED. WHITFIELD IN PLACE AND DRAINING. IV REMOVED TODAY, ORDER IN THE CHART. PT YELLS OUT, DOES NOT USE THE CALL LIGHT. SMALL BM TODAY. NO COMPLAINTS BY THE PT OTHER THAN SHE WANTS TO GO HOME. APPETITE CONTINUES TO IMPROVE. NO ACUTE CHANGES. REPOSITIONED Q2 THROUGHOUT THE SHIFT. CALL LIGHT WITHIN REACH, BED LOCKED AND IN THE LOWEST POSITION. WILL REPORT TO ONCOMING NURSE.
[2024-07-24 21:25] VITALS: BP 127/93
--- NOTE | 2024-07-25 05:07 | NUR ---
SHIFT SUMMARY PATIENT IS AOX3. ORIENTED TO SELF, PLACE, AND TIME. PATIENT IS ABLE TO MAKE NEEDS KNOWN. THROUGHOUT NIGHT, PATIENT WAS ADAMANT SHE COULD SMOKE. OFFERED PATIENT NICOTINE PATCH, WHICH PATIENT REFUSED. PATIENT TRIED TO GET UP OUT OF BED, BUT WAS CONVINCED TO STAY IN BED. PATIENT HAS WHITFIELD CATHETER. WHITFIELD IS PATENT AND DRAINING. NO OTHER ACUTE CHANGES OVERNIGHT.
[2024-07-25 08:43] VITALS: BP 129/83
[2024-07-25 15:28] VITALS: BP 138/80
--- NOTE | 2024-07-25 17:57 | NUR ---
SHIFT NOTE: PT A/OX1 SHE IS UNABLE TO COMMUNICATE HER NEEDS. SHE HAS BEEN SHOUTING OUT T/O SHIFT CALLING FOR "BILL" HER AND HALLUCINATING THERE IS A CAT IN THE ROOM. SHE HAS A WHITFIELD FOR RETENTION THAT IS DRAINING TO GRAVITY. SHE HAS BEEN FED BY THE [employer] EXP[employer]OR AND DRIER FOR ALL MEALS. CARE CONTINUES
[2024-07-25 20:25] VITALS: BP 132/83
[2024-07-25] MEDS ORDERED: Mirtazapine 15 MG Tab PO SCH (21:00)
--- NOTE | 2024-07-26 03:53 | NUR ---
SHIFT SUMMARY ADMITTED FOR HYPOTHERMIA. DNR CODE. HYPOTHERMIA HAS RESOLVED. PLAN IS FOR PLACEMENT/GUARDIANSHIP. WHITFIELD IN PLACE FOR RETENTION. SOFT BITE DIET, FEEDER. A&O XSELF ONLY. ASPIRATION PRECAUTIONS. SHE IS NOT REDIRECTABLE. PT/OT/ST THERAPIES ASSISTING WITH THIS PATIENT. DR. SANDHU IS PSYCH CONSULT. ON RA.
[2024-07-26 04:38] VITALS: BP 125/73
[2024-07-26 07:52] VITALS: BP 134/80
[2024-07-26] MEDS ORDERED: LORazepam 0.5 MG Tab PO PRN (14:05)
[2024-07-26 15:27] VITALS: BP 117/62
--- NOTE | 2024-07-26 17:08 | NUR ---
SHIFT SUMMARY: PATIENT A/O TO SELF AND PLACED ONLY, CONFUSED, AGITATED AND ANXIOUS AT TIMES. PATIENT MEDICATED X1 FOR AGETATION/ANXIETY c MOD EFFECT. PATIENT 1:1 FEEDER c ALL MEALS, FAIR APPETITE, WHITFIELD PLACED FOR RETENTION, PATENT DRAINING YELLOW URINE TO GRAVITY. PATIENT REPOSITIONED T/O SHIFT. PATIENT RECEIVED SCHEDULED MEDS PER EMAR. VITAL SIGNS REVIEWED. BED ALARM ON FOR SAFETY. CALL LIGHT IN REACH.
[2024-07-26 19:45] VITALS: BP 135/88
[2024-07-27 04:36] VITALS: BP 128/79
--- NOTE | 2024-07-27 04:49 | NUR ---
SHIFT SUMMARY PATIENT AOX1. PATIENT ON RA. AT START OF SHIFT, PATIENT THOUGHT SHE WAS AT HER HOME AND THAT HER PARENTS WERE VISITING HER. SHE ATTEMPTED TO CLIMB OUT OF BED. RN REORIENTED AND REDIRECTED HER. PATIENT HAS BEEN CALM AND COOPERATIVE, ALBEIT CONFUSED, SINCE THIS EVENT. PATIENT HAS CHRONIC WHITFIELD FOR RETENTION. WHITFIELD IS PATENT AND DRAINING TO GRAVITY. NO ACUTE EVENTS ON SHIFT.
[2024-07-27 07:33] VITALS: BP 126/75
[2024-07-27 15:21] VITALS: BP 136/86
--- NOTE | 2024-07-27 18:30 | NUR ---
SHIFT SUMMARY: PATIENT A/O TO SELF ONLY, CONFUSED AND ANXIOUS AT TIMES. PATIENT MEDICATED FOR ANXIETY c MOD EFFECT. PATIENT HAS WHITFIELD FOR ACUTE RETENTION, PATENT DRAINING YELLOW URINE TO GARVITY. PATIENT RECEIVED SCHEDULED MEDS PER EMAR. VITAL SIGNS REVIEWED. PATIENT AWAITING FOR [facility] MEDICAID APPROVAL FOR SAFE PLACEMENT. NO IV ACCESS PER ORDER. BED ALARM ON FOR SAFETY. CALL LIGHT IN REACH
[2024-07-27 19:44] VITALS: BP 142/88
[2024-07-28 04:14] VITALS: BP 135/86
--- NOTE | 2024-07-28 06:08 | NUR ---
SHIFT SUMMARY PT IS AO2. PT IS ON RA. SHE HAS WHITFIELD THAT IS PATENT AND DRAINING TO GRAVITY. PATIENT IS 2P ASSIST, BED LOCKED IN LOWEST POSITION WITH ALARM ON. PT IS CALM, COOPERATIVE, AND ABLE TO MAKE NEEDS KNOWN. NO ACUTE EVENTS.
[2024-07-28 07:35] VITALS: BP 171/88
[2024-07-28 08:08] VITALS: BP 137/83
[2024-07-28] MEDS ORDERED: LORazepam 2 MG/ML 1ML Injection IV ONE (10:05)
[2024-07-28] MEDS ORDERED: Haloperidol Lactate Inj. 5 MG/ML Injection IM PRN (10:15)
[2024-07-28] MEDS ORDERED: OLANZapine 10 MG Vial IM PRN (10:40)
--- NOTE | 2024-07-28 19:30 | NUR ---
SHIFT SUMMARY PT A&O TO SELF. PT NOT ORIENTED TO CURRENT SISTUATION OR LOCATION. PT ADMITTED DUE TO HAVING BEEN FOUND DOWN. PT CONFUSED. PT NOT REDIRECTABLE. CALLED TODAY TO GET PRN ZYPREXA AND PRN HALDOL FOR AGITATION. PT WAS IN MICH PART OF DAY DUE TO DOCUMENTATION OF RESTRAINT COMPLETE. PT UNABLE TO AMBULATE SELF. VERY WEAK. Q2 TURNED. PT INC OF BOWEL AND URINE. PT HAS ATTENDS ON. PT DOESN'T FOLLOW DIRECTION. PT WAS IN CHAIR PART OF SHIFT. PT REPORTS NO PAIN. PT IS A FALL RISK. BED ALARM ON. BED IN LOWEST POSITION. CALL LIGHT IN REACH. REQUESTED A CLINICAL SITTER FROM CHARGE NURSE. PLAN IS WAITING FOR GAURDI[place]SHIP.
[2024-07-28 20:43] VITALS: BP 131/96
[2024-07-29 06:40] VITALS: BP 122/66
[2024-07-29 07:02] LABS: BASOPHILS ABSOLUTE AUTO 0.14 K/mm3 (0.00-0.23); BASOPHILS PERCENT AUTO 2 % (0-2); EOSINOPHILS ABSOLUTE AUTO 0.19 K/mm3 (0.00-0.68); EOSINOPHILS PERCENT AUTO 2 % (0-6); Hematocrit 28.1 % (33.0-51.0); Hemoglobin 9.2 g/dL (11.5-16.0); IMMATURE GRAN ABSOLUTE AUTO 0.04 K/mm3 (0.00-0.10); IMMATURE GRAN PERCENT AUTO 1 % (0-1); LYMPHOCYTES ABSOLUTE AUTO 2.31 K/mm3 (0.84-5.20); LYMPHOCYTES PERCENT AUTO 28 % (21-46); MONOCYTES ABSOLUTE AUTO 1.17 K/mm3 (0.16-1.47); MONOCYTES PERCENT AUTO 14 % (4-13); Mean Corpuscular HGB 33.9 pg (26.0-34.0); Mean Corpuscular HGB Conc 32.7 g/dL (31.5-36.5); Mean Corpuscular Volume 104 fL (80-100); Mean Platelet Volume 11.7 fL (9.1-12.4); NEUTROPHILS ABSOLUTE AUTO 4.37 K/mm3 (1.96-9.15); NEUTROPHILS PERCENT AUTO 53 % (41-73); Platelet Count 286 K/mm3 (150-400); RDW Coefficient Variation 16.5 % (11.7-14.2); Red Blood Cell Count 2.71 M/mm3 (3.80-5.20); White Blood Cell Count 8.22 K/mm3 (4.00-11.30)
[2024-07-29 07:35] LABS: Bun/Creatinine Ratio 26.4 (12.0-20.0); Calcium, Blood 8.7 mg/dL (8.5-10.1); Creatinine, Blood 0.53 mg/dL (0.40-1.00); Potassium, Blood 3.4 mmol/L (3.5-5.5)
[2024-07-29] MEDS ORDERED: Potassium Chloride 10 Meq Tablet SA PO ONE (09:10)
[2024-07-29 10:19] VITALS: BP 130/77
[2024-07-29 16:47] VITALS: BP 126/72
--- NOTE | 2024-07-29 17:37 | NUR ---
SHIFT SUMMARY PT A&O TO SELF. PT ADMITTED DUE TO HYPOTHERMIA. PT REPORTS NO PAIN, CHEST DISCOMFORT, SOB. PT MORE COOROPERATIVE WITH CARE TODAY. PT HAS WHITFIELD, WHITFIELD DRAINING WITH NO DEPENDENT LOOPS, APPEARS DARK YELLOW. GUARDIANSHIP CAME TO ASSESS PT TODAY. PT INC. OF STOOL, PT HAS ATTENDS ON AND CHANGED PRN. NOTICED PT HAS BLANCHABLE REDNESS ON BOTTOM, APPLIED CREAM. PT TURNED Q2 HOURS. PT HAS NO IV ORDER. PT ON BEDREST, UNABLE TO STAND DUE TO WEAKNESS/ DECONDITIONED. PT BED ALARM ON. BED IN LOWEST POSITION. CALL LIGHT IN REACH.
[2024-07-29 19:46] VITALS: BP 133/77
[2024-07-29 20:30] VITALS: BP 142/92
[2024-07-29 21:26] VITALS: BP 142/92
--- NOTE | 2024-07-29 21:58 | NUR ---
NOTIFIED BY MILK CONDENSER @ 2029 THAT PT HAD ESCAPED MICH VEST AND FELL OVER SIDE RAILING AND WAS ON FLOOR AFTER BED ALARM ACTIVATED. PT STATED THAT THEY DID NOT HIT HEAD, BUT OPENED UP HEALED SCAP ON LFA. HOSPITALIST NOTIFIED AND RESTRAINTS CHANGED TO BUE LOCKED RESTRAINTS.
[2024-07-30 04:45] VITALS: BP 137/86
--- NOTE | 2024-07-30 05:38 | NUR ---
SHIFT SUMMARY NOC PT A/O TO SELF. PT NON DIRECTABLE AND ATTEMPTING OOB FREQUENTLY. PT MEDICATED WITH PO ATIVAN AT SHIFT CHANGE. COUPLE HOURS INTO SHIFT PT PLACED IN MICH VEST DUE TO FREQUENT OOB UNSAFE ATTEMPTS. AROUND 2100 PT HAD GOTTEN OUT OF MICH VEST AND FELL OVER RAILING AND WAS ON GROUND. PT DENIES HITTING HEAD AND ONLY C/O SORE LFA DUE TO SMALL SKIN TEAR WHICH A BAND AID WAS PLACED. PT VSS AND NEURO CHECKS WNL. POST FALL ASSESSMENT COMPLETED. PT THEN PLACED IN BUE LOCKED RESTRAINTS. PT HAS WHITFIELD IN PLACE DRAINING TO GRAVITY. PT HAS GUARDIANSHIP IN PLACE, BUT IS AWAITING [facility] MEDICAID APPROVAL FOR PLACEMENT IN FACILITY. PT CURRENTLY RESTING WITH BED ALARM ON, BED IN LOWEST POSITION, AND CALL LIGHT WITHIN REACH.
[2024-07-30 07:56] VITALS: BP 134/76
--- NOTE | 2024-07-30 08:53 | NUR ---
PREVIOUS NICOTINE PATCH FOUND AND REMOVED.
[2024-07-30 14:33] VITALS: BP 136/86
--- NOTE | 2024-07-30 18:24 | NUR ---
PT TRANSFER TO ROOM 353 AT APPROX 1730. GAVE REPORT TO CHEY PHILLIPS
[2024-07-30 19:36] VITALS: BP 141/99
--- NOTE | 2024-07-31 04:35 | NUR ---
SHIFT SUMMARY PT ALERT ORIENTED TO SELF ONLY WITH CONFUSION AND FORGETFULNESS. SHES VERY ANXIOUS AND MAKES SEVERAL ATTEMPTS AT TRYING TO GET OUT OF BED AND IS VERY UNSAFE. SHE PULLED HER WHITFIELD CATHETER OUT AND HAD TO HAVE IT REPLACED. SHE HAS LOCK RESTRAINTS ON BILATERAL HANDS. SHE HAS SOME BRUISES TO WHERE THE RESTRAINTS ARE R/T HER FIGHTING THE RESTRAINTS. WHITFIELD CATHETER INTACT DRAINING YELLOW URINE. SHE RECEIVED ZYPREXA AND ATIVAN TO HELP WITH HER ANXIETY AND RESTLESSNSS. SHE JUST CONTINUES TO STATE THAT SHE NEEDS TO GET OUT OF HERE. SHES PENDING SNF PLACEMENT. VSS ON RA SATTING AT 96%. SHES ABLE TO REPOSITION HERSELF IN THE BED. RESTING IN BED AT THIS TIME WITH CALL LIGHT IN REACH
[2024-07-31 05:57] VITALS: BP 135/82
[2024-07-31 07:41] VITALS: BP 127/60
--- NOTE | 2024-07-31 08:30 | NUR ---
THIS RN AND SENIOR GEOTECHNICAL ENGINEER ENTERED PATIENT'S ROOM TO GET HER READY FOR BREAKFAST; ADJUSTED WRIST RESTRAINTS; UNDERNEATH HER L WRIST WAS BLEEDING, RESTRAINT REMOVED AND SMALL AREA OF BRUISING WITH SMALL PINPOINT OPENING THAT WAS BLEEDING. AREA CLEANSED AND BANDAGE APPLIED. NO SIGNS OR SYMPTOMS OF DISTRESS WITH PATIENT. PATIENT'S SKIN FRAGILE, LOTS OF BRUSIING, AND SCABS. PATIENT DENIES PAIN.
--- NOTE | 2024-07-31 08:55 | NUR ---
BOTH RESTRAINTS REMOVED WHILE RN AND PLANER HAND IN ROOM WHILE PATIENT FED HERSELF BREAKFAST AND TOOK MEDICATIONS. PATIENT COMPLIANT WITH THIS PROCESS. WRITTEN IN MY LAST NOTE THE PATIENT'S R FORMARM STARTED BLEEDING AFTER THE R RESTRAINT WAS REMOVED. VERY SMALL AREA PIN POINT; CLEANSED AND BANDAGE APPLIED. BILATERAL PROTECTIVE PADDED DRESSINGS AND NETTING TO PROTECTIVE THE PATIENT'S FOREARMS. PATIENT COMPLIANT WITH THIS. SHE DID MADE COMMENTS ABOUT NOT HABING THE "BELTS" PUT BACK ON. PATIENT AFTER BREAKFAST STATED THAT SHE NEEDED TO GO OUT TO SMOKE A CIGARRETTE AND ATTEMPTING TO GET OUT OF BED. RESTRAINTS WERE PLACED AGAIN. NO SIGNS OR SYMPTOMS OF DISTRESS WITH PATIENT.
[2024-07-31 16:30] VITALS: BP 136/80
--- NOTE | 2024-07-31 16:34 | NUR ---
SHIFT SUMMARY: NO EVENTS OR CHANGES WITH THE PATIENT THROUGHOUT THE SHIFT. SHE REMAINS IN RESTRAINTS DUE TO ATTEMPTING OOB UNSAFELY; STATING THAT SHE NEEDS TO GO OUT TO HER VEHICLE/SMOKE A CIGARETTE. ATTEMPTS MADE TO REDIRECT PATIENT, BUT UNSUCCESSUL AND MEDICATIONS INVERVENTION NEEDED. PATIENT RESTING CALMING AND COMFORTABLE AT THIS TIME. NO SIGNS OR SYPTOMS OF DISTRESS, CALL LIGHT WITHIN REACH, BED ALARM ON, PLAN OF CARE ONGOING.
--- NOTE | 2024-07-31 17:25 | NUR ---
CURRENTLY IN ROOM WITH PATIENT SHE APPEARS CALM AND COOPERATIVE AT THIS TIME. RESTRAINTS REMOVED AND ICE WATER AND CHOCOLATE ENSURE PROVIED; PATIENT DRINKING ON BOTH, PATIENT WEAK HAVING DIFFICULTY HOLDING CUP. SHE IS NOT ATTEMPTING OOB UNSAFELY OR PULLING AT LINES AT THIS TIME. BED ALARM SET, CALL LIGHT WITHIN REACH, NO SIGNS OR SYMPTOMS OF DISTRESS, PLAN OF CARE ONGOING.
--- NOTE | 2024-07-31 18:34 | NUR ---
PATIENT SET OFF BED ALARM AND ATTEMPTING TO GET OUT OF BED. ATTEMPTED TO REDIRECT PATIENT, BUT PATIENT ADAMANT ON LEAVING. RESTRAINTS PUT BACK ON.
[2024-07-31 19:09] VITALS: BP 157/84
[2024-08-01 03:28] VITALS: BP 145/82
--- NOTE | 2024-08-01 04:32 | NUR ---
SHIFT SUMMARY PT ALERT ORIENTED TO SELF ONLY. SHE IS VERY RESTLESS AND TRYS PULLING OUT HER CATHETER AND TRYS GETTING OUT OF BED SEVERAL OF TIMES. SHE HAS HAD A FALL SINCE BEING HERE IN THE HOSPITAL. SHE HAS LOCKED BILATERAL WRIST RESTRAINTS ON R/T SHE KEPT GETTING OUT OF THE SOFT RESTRAINTS. SHE WAS GIVEN ZYPREXA AND ATIVAN LAST NIGHT WHICH HELPED WITH HER BEHAVIORS. VSS ON RA SATTING AT 97%.
[2024-08-01 10:39] VITALS: BP 128/78
[2024-08-01] MEDS ORDERED: OLANZapine ODT 5 MG Tab MM PRN (12:40)
[2024-08-01] MEDS ORDERED: Haloperidol Lactate Inj. 5 MG/ML Injection IM PRN (12:40)
--- NOTE | 2024-08-01 15:38 | NUR ---
NOTIFIED DR. AMBRIZ THAT PATIENT WAS ABLE TO VOID POST WHITFIELD 250ML, BUT IS RESIDUAL 415. HE ADVISED THAT WE ROUTINELY BLADDER SCAN AND TO STRAIGH CATH FOR A VOLUME GREATER THAN 500ML/HR.
[2024-08-01 16:06] VITALS: BP 142/73
--- NOTE | 2024-08-01 17:56 | NUR ---
SHIFT SUMMARY: PATIENT HAS BEEN PLEASANT, CALM AND COOPERATIVE WITHOUT THE SHIFT. ATTEMPTS WERE MADE TO TAKE THE PATIENT OUT OF RESTRAINTS, BUT PATIENT QUICKLY WOULD ATTEMPT TO GET OUT OF BED AND BE ADAMANT ABOUT GOING OUT TO HER VEHICLE/SMOKE A CIGARETTE; NOT ABLE TO VERBALLY REDIRECT TO REFRAIN HER FROM CONTIUNING TO GET ATTEMPT TO GET OUT OF BED. RESTRAINTS IN PLACE CURRENTLY. PATIENT'S WHITFIELD WAS REMOVED; VOIDED ONCE, BUT CONTINUES TO RETAIN URINE AND HASN'T BE ABLE TO VOID AGAIN SINCE DESPITE STATING SHE NEEDS TO URINATE. PATIENT IN BED, HAD CONVERSATION WITH HER PARENTS THIS EVENING, THEY HAVE HER PHONE AND PURSE. NO SIGNS OR SYMPTOMS OF DISTRESS, PLAN OF CARE ONGOING.
[2024-08-01 20:34] VITALS: BP 144/87
[2024-08-02 06:20] VITALS: BP 121/78
[2024-08-02 06:32] LABS: Hematocrit 27.7 % (33.0-51.0); Hemoglobin 8.9 g/dL (11.5-16.0); Mean Corpuscular HGB 33.5 pg (26.0-34.0); Mean Corpuscular HGB Conc 32.1 g/dL (31.5-36.5); Mean Corpuscular Volume 104 fL (80-100); Mean Platelet Volume 10.9 fL (9.1-12.4); Platelet Count 258 K/mm3 (150-400); RDW Coefficient Variation 15.9 % (11.7-14.2); RDW Standard Deviation 61.7 fL (35.1-46.3); Red Blood Cell Count 2.66 M/mm3 (3.80-5.20); White Blood Cell Count 9.27 K/mm3 (4.00-11.30)
[2024-08-02 07:05] LABS: Bun/Creatinine Ratio 18.6 (12.0-20.0); Calcium, Blood 8.4 mg/dL (8.5-10.1); Creatinine, Blood 0.7 mg/dL (0.40-1.00); Magnesium, Blood 2.1 mg/dL (1.6-2.4); Potassium, Blood 3.8 mmol/L (3.5-5.5)
[2024-08-02 15:10] VITALS: BP 119/60
--- NOTE | 2024-08-02 19:16 | NUR ---
SHIFT SUMMARY PT IS A/OX3-4. 2 PERSON MAX ASSIST TO BSC. RESTRAINTS DISCONTINUED AND 1:[address] D/T CONFUSION AND HIGH FALL RISK, PT REMAINS REDIRECTABLE THROUGHOUT THIS SHIFT.
[2024-08-02 20:15] VITALS: BP 126/58
[2024-08-03 04:41] VITALS: BP 119/63
--- NOTE | 2024-08-03 06:20 | NUR ---
SHIFT SUMMARY. PATIENT IS A&OX3 WITH CONFUSION AND FORGETFULLNESS. PATIENT IS PLEASANTLY CONFUSED, FOLLOW INSTRUCTIONS AND IS ABLE TO MAKE HER NEEDS KNOWN. PATIENT CAN BE IMPULSIVE AND IS VERY UNSTEADY ON HER FEET-PATIENT HAS SITTER FOR SAFETY. PATIENT IS INCONTINENT-ATTENDS CHANGED NEEDED AND CHECKED Q2 HOURS. PATIENT DRINKING ENSURE WELL. BED IS LOCKED IN THE LOWEST POSITION WITH CALL LIGHT IN REACH.
[2024-08-03 07:32] VITALS: BP 115/64
--- NOTE | 2024-08-03 15:00 | NUR ---
PT TRANSFERED FROM ROOM 352 TO 344 IN ORDER TO EMPTY THE LIFT ROOM.
[2024-08-03 15:27] VITALS: BP 130/71
--- NOTE | 2024-08-03 17:14 | NUR ---
SHIFT SUMMARY PT IS A/OX3, CONFUSION AND FORGETFUL AT TIMES OF PLACE AND DATE/TIME. PT IMPULISVE AT TIMES, 1:[address] AND PT REMAINS REDIRECTABLE. NO ACUTE CHANGES THROUGHOUT THIS SHIFT. 2 PERSON ASSIST TO BSC/CHAIR. PT IS CONT/INCONT.
--- NOTE | 2024-08-04 04:15 | NUR ---
NO ACUTE CHANGES. PATIENT IS A&OX3 WITH CONFUSION AT TIMES. PATIENT IMPULSIVE 1:1 SITTER WITH PATIENT T/O NIGHT. PATIENT IS A 1-2P ASSIST TO THE BSC WITH WALKER-PATIENT IS UNSTEADY ON FEET. BED IS LOCKED IN THE LOWEST POSITION WITH CALL LIGHT IN REACH. CARE IS ONGOING.
[2024-08-04 04:49] VITALS: BP 137/72
[2024-08-04 07:24] VITALS: BP 122/73
--- NOTE | 2024-08-04 10:26 | NUR ---
AM NOTE ASSUMED CARE OF PATIENT AT APPROX. 0700. PATIENT SLEEPING WITH 1:1 SITTER AT BEDSIDE. PATIENT A&0 TO SELF, IMPULSIVE. PATIENT IS PLEASANT. PATIENT UP TO BSC WITH 2P ASSIST. PATIENT WEAK. REPORT GIVEN TO MARIANELA CHAMBERS AT APPROX. 0930 TO ASSUME CARE OF PATIENT.
[2024-08-04 15:03] VITALS: BP 105/84
--- NOTE | 2024-08-04 16:47 | NUR ---
SHIFT SUMMARY PT IS A/OX3, CONFUSION TO DATE/TIME AND PLACE. WHEN ASKED IF THE PT KNOWS WHERE SHE IS SHE STATED "[place]", WHEN ASKED WHAT TYPE OF BUILDING SHE WAS IN SHE STATED "IN A HOTEL". PT CONT OF BOWELS AND CONT/INCONT OF BLADDER. 2 PERSON ASSIST TO BSC/CHAIR. PT IS IMPULSIVE AT TIMES, 1:[address], PT IS REDIRECTABLE. PT REPORTS BEING "ITCHY" THIS AFTERNOON. THE PT SCRATCHED HER LEFT UPPER ARM BEGAN TO BLEED. SCRATCHES COVERED WITH A MEPILEX DRESSING.
[2024-08-04 19:25] VITALS: BP 122/59
[2024-08-04] MEDS ORDERED: LORazepam 0.5 MG Tab PO ONE (23:15)
--- NOTE | 2024-08-04 23:21 | NUR ---
CALLED HOSPITALIST PATIENT STATES SHE FEELS ANXIOUS AND RESTLESS. NEW ORDER IN EMAR. WILL CONTINUE TO MONITOR
[2024-08-05 03:36] VITALS: BP 133/62
--- NOTE | 2024-08-05 03:42 | NUR ---
SHIFT SUMMARY ADMITTED FOR HYPOTHERMIA - RESOLVED. DNR CODE. PLAN IS FOR MEDICAID APPROVAL, THEN PLACEMENT. ON RA. REGULAR DIET. PT/OT/ST ARE SCHEDULED. 3 ASSIST TO BSC. A&O X2-3, CONFUSED AND FORGETFUL. IMPULSIVE AT TIMES. THE PATIENT STATED SHE WAS ANXIOUS AT ONE POINT DURING SHIFT, I DID GET ORDER FOR ANXIETY RX. SEE PREVIOUS NOTE AND EMAR.
[2024-08-05 07:49] VITALS: BP 114/73
[2024-08-05 16:00] VITALS: BP 127/67
--- NOTE | 2024-08-05 18:25 | NUR ---
SHIFT SUMMARY PATIENT WITH NO ACUTE EVENTS DURING SHIFT. SHE HAS BEEN UP IN CHAIR FOR MEALS AND TO BSC WITH 2 PERSON ASSIST. SHE IS ABLE TO FOLLOW MOST VERBAL DIRECTION. BED IN LOW POSITION, SITTER PRESENT AT ALL TIMES.
[2024-08-05 19:00] VITALS: BP 124/69
--- NOTE | 2024-08-06 02:21 | NUR ---
Oriented to self and forgetful. Keep asking to go home or check into a motel to change clothes, easily re-oriented to time and place but orientation does not last long. 2-3 assist to BSC or chair. Incontinenet of urine. Cooperative with cares. Sitter in room.
[2024-08-06 02:43] VITALS: BP 137/54
[2024-08-06 07:25] VITALS: BP 116/79
[2024-08-06 15:10] VITALS: BP 117/70
--- NOTE | 2024-08-06 17:44 | NUR ---
SUMMARY- PT A/O X2, CONFUSED/FORGETFUL AND IMPULSIVE. 1:1 SITTER FOR IMPULSIVITY. PT UP TO CHAIR 1-2 SBA. TOLERATING FOOD AND FLUID. DENIES PAIN. ROOM AIR, RESP EVEN UNLABORED. AWAITING MEDICAID/PLACEMENT. UNEVENTFUL DAY.. WILL REPORT TO NORM RN
[2024-08-06 19:11] VITALS: BP 111/54
[2024-08-07 04:09] VITALS: BP 108/70
--- NOTE | 2024-08-07 04:38 | NUR ---
ORIENTED TO SELF, SITTER IN ROOM. PT CONFUSED AND WANTING TO GET BACK TO THE MOTEL TO CHANGE CLOTHES, UNABLE TO REDIRECT. PRN MEDICATION GIVEN. PT FELL ASLEEP AROUND 0100 BUT CONTINUED TO BE RESTLESS AND AGITIATIED.
[2024-08-07 07:48] VITALS: BP 125/70
[2024-08-07 14:34] VITALS: BP 109/97
--- NOTE | 2024-08-07 16:57 | NUR ---
SHIFT SUMMARY PT A&O TO SELF, DOESN'T KNOW LOCATION. PT IS IMPULSIVE AT TIMES BUT REDIRECTABLE. PT ADMITTED DUE TO HYPOTHERMIA. PT HAS NO IV ORDER. PT HAD BM TODAY. ATTENDS ON DUE TO INC. AT TIMES. PT EATS ADEQUATE. PT IS A 1-2 ASSIST TO BSC. BED ALARM ON. WAITING FOR PLACEMENT. BED IN LOWEST POSITION. CALL LIGHT IN REACH.
[2024-08-07 19:10] VITALS: BP 117/80
[2024-08-08 02:15] VITALS: BP 120/61
--- NOTE | 2024-08-08 03:41 | NUR ---
COLLAR FELLER SUMMARY PT PLEASANTLY CONFUSED AND EASILY REDIRECTABLE OVERNIGHT. PT DENIES HAVING ANY UNADRESSED NEEDS. BED ALARM ON AND CALL LIGHT WITHIN REACH.
[2024-08-08 07:15] VITALS: BP 151/65
[2024-08-08 08:30] VITALS: BP 105/62
[2024-08-08 08:35] VITALS: BP 105/62
--- NOTE | 2024-08-08 08:47 | NUR ---
@ 8:30 am while passing the rest of the breakfasts for scu thieninderjit moreland r.n. called to alert me that 344 had fallen. She was found on the floor in the seated position at foot of bed, in front of the plastic bed end. She stated "I hurt my bum climbing over that stupid plastic thing." Referring to the bottom of the bed plastic thing. She is unsteady and jerky in movement. all alarms are set and she is pretty heavily monitored as i'd been setting up right outside her room for past days so she can see me and im quickly available, However today her confusion was increased and my other patients had yet to calm enough for me to be one on one-bessie. 44 and 46 are impulsive and my brand new 48 is ajumper ripper. Patient was safely raised upto chair and distracted with breakfast and a large cranberry juice. No visable skin changes but will continue to skin check. UNWITNESSED FALL. Charge nurse aware, 3 nurses assist and witness the recovery of the scene.
--- NOTE | 2024-08-08 12:57 | NUR ---
NOTE PT A&O TO SELF. PT IS PLEASANT AND COOPERATIVE. THIS AM AT 0830, RN ON FLOOR SAID "SHE HEARD PT'S BED ALARM GO OFF AND WENT IN ROOM AND SAW PT HAD FALLEN." THIS RN AND ANOTHER RN ASSESSED FOR WOUNDS. NO SIGNS OF PT HITTING HEAD OR WOUNDS PRESENT. PT WAS ASSISTED WITH GETTING OFF GROUND BY 2 RN'S AND GB. WHEN PT WAS ASKED IF SHE FEELS ANY INJURIES, PT REPONDS WITH "I AM NOT INJURED." CHARGE NURSE NOTIFIED. BUILDING CARPENTER TOOK VITALS, VITALS STABLE. PT IS ON CAMERA NOW, DR. HOOK NOTIFIED, CHARGE NURSE NOTIFIED. BED ALARM ON.
--- NOTE | 2024-08-08 17:07 | NUR ---
SHIFT SUMMARY PT A&O TO SELF, DOESN'T KNOW LOCATION. PT IS IMPULSIVE AT TIMES BUT REDIRECTABLE. PT ADMITTED DUE TO HYPOTHERMIA. PT HAS NO IV ORDER. PT HAD SHOWER TODAY. ATTENDS ON DUE TO INC AT TIMES. PT EATS ADEQUATE. PT IS A 1-2 ASSIST TO BSC. BED ALARM ON. CAMERA ON PT. WAITING FOR PLACEMENT. BED IN LOWEST POSITION. CALL LIGHT IN REACH, VSS.
[2024-08-08 19:33] VITALS: BP 125/58
--- NOTE | 2024-08-09 04:23 | NUR ---
WINTER INTERN SUMMARY NO ACUTE ISSUES OVERNIGHT. PT DENIES HAVING ANY SYMPTOMS FROM HER FALL ON DAY SHIFT. SHE HAS BEEN ORIENTED X 2-3, PLEASANT, AND EASILY REDIRECTABLE. TELE SITTER IN PLACE AND BED/CHAIR ALARM ON. CALL LIGHT WITHIN REACH.
[2024-08-09 07:14] VITALS: BP 129/75
[2024-08-09 14:43] VITALS: BP 116/51
--- NOTE | 2024-08-09 17:14 | NUR ---
PT PLEASANT TODAY. NO C/O PAIN. ALERT X3 TODAY. NO NEW CONCERNS NOTED. SHE HAS BEEN QUITE TALKATIVE AND WATCHING MUSCLE CARS ON TV MUCH OF DAY. SHE HAS BEEN IN CHAIR AND BACK TO BED TODAY. AGREES TO BE CAREFUL AND USE CALL LITE PRIOR TO GETTING UP. NO OTHER CONCERNS NOTED. BED IN LOW POSITION, CALL LITE IN REACH, CALLS APPROP TODAY
[2024-08-09 19:58] VITALS: BP 94/41
[2024-08-09 20:00] VITALS: BP 115/64
[2024-08-10 03:02] VITALS: BP 119/70
--- NOTE | 2024-08-10 04:34 | NUR ---
BENCH INSPECTOR SUMMARY NO ACUTE ISSUES OVERNIGHT. SHE HAS BEEN ORIENTED X 2-3, PLEASANT, AND EASILY REDIRECTABLE. TELE SITTER IN PLACE FOR FALL PREVENTION. BED ALARM ON AND CALL LIGHT WITHIN REACH.
[2024-08-10 07:42] VITALS: BP 114/62
--- NOTE | 2024-08-10 15:31 | NUR ---
PT PLEASANT AND COOPERATIVE TODAY. NO C/O PAIN THIS SHIFT. AGREED TO TAKE SHOWER SHORTLY. SITTING UP IN CHAIR EATING AN ICE CREAM AT THIS TIME. MOTHER AND FATHER CAME IN TO VISIT TODAY. SHE WAS VERY EXCITED TO SEE THEM. BROUGHT A STUFFED TOY. VSS. NO OTHER NEW CONCERNS NOTED TODAY. BED IN LOW POSITION, CALL LITE IN REACH, BED ALARM ON FOR SAFETY.
[2024-08-10 16:53] VITALS: BP 124/74
[2024-08-10 19:24] VITALS: BP 115/79
[2024-08-11 02:27] VITALS: BP 115/62
--- NOTE | 2024-08-11 04:38 | NUR ---
SENIOR TECHNICAL ARCHITECT SUMMARY NO ACUTE ISSUES OVERNIGHT. SHE HAS BEEN ORIENTED X2-3, PLEASANT AND EASILY REDIRECTABLE. TELE SITTER IN PLACE FOR FALL PREVENTION. BED ALARM ON AND CALL LIGHT WITHIN REACH.
[2024-08-11 07:22] VITALS: BP 100/48
[2024-08-11 15:44] VITALS: BP 107/49
--- NOTE | 2024-08-11 17:40 | NUR ---
SHIFT SUMMARY PT A&OX4 W/ INTERMIT CONFUSION, VSS, AMB W/ ASSIST TO THE BSC, TOLERATING PO, VOIDING, AND DENIED PAIN. CAMERA IN ROOM. PT CALLED APPROPRIATELY T/O SHIFT. NO OTHER ACUTE CHANGES. CALL LIGHT WITHIN REACH AND PT ABLE TO MAKE NEEDS KNOWN.
[2024-08-11 19:43] VITALS: BP 135/72
[2024-08-12 05:20] VITALS: BP 118/62
--- NOTE | 2024-08-12 07:06 | NUR ---
NET DEVELOPMENT MANAGER SUMMARY NO ACUTE ISSUES OVERNIGHT. SHE HAS BEEN ORIENTED X3, PLEASANT AND EASILY REDIRECTABLE. TELE SITTER IN PLACE FOR FALL PREVENTION. BED ALARM ON AND CALL LIGHT WITHIN REACH.
[2024-08-12 07:56] VITALS: BP 116/65
[2024-08-12 15:27] VITALS: BP 124/76
--- NOTE | 2024-08-12 17:24 | NUR ---
SHIFT SUMMARY PT ATTEMPTED OOB UNSAFELY X2 T/O SHIFT, BUT WAS EASILY REDIRECTABLE AND ORIENTED TO THE CALL LIGHT. PT CALLED APPROPRIATELY AFTER REORENTATION TO THE CALL LIGHT. NO ACUTE CHANGES. CALL LIGHT WITHIN REACH, CAMERA IN ROOM, AND BED ALARM ON.
[2024-08-12 19:25] VITALS: BP 102/56
[2024-08-13 05:14] VITALS: BP 114/69
--- NOTE | 2024-08-13 05:52 | NUR ---
CARPET INSTALLER HELPER SUMMARY NO ACUTE ISSUES OVERNIGHT. SHE HAS BEEN ORIENTED X3, PLEASANT AND EASILY REDIRECTABLE. TELE SITTER IN PLACE FOR FALL PREVENTION. BED ALARM ON AND CALL LIGHT WITHIN REACH.
[2024-08-13 08:18] VITALS: BP 116/54
[2024-08-13 14:30] VITALS: BP 115/72
--- NOTE | 2024-08-13 17:22 | NUR ---
SHIFT SUMMARY NO ACUTE CHANGES THIS SHIFT. CALL LIGHT WITHIN REACH AND CAMERA REMAINS IN ROOM.
[2024-08-13 20:35] VITALS: BP 112/59
[2024-08-14 02:28] VITALS: BP 124/74
--- NOTE | 2024-08-14 04:19 | NUR ---
SHIFT SUMMARY PATIENT HAD NO ACUTE CHANGES. AXO X4 WITH CONFUSION AT TIMES. SBA TO BSC. NO IV ACCESS. DENIES CHEST PAIN, SOB, AND N/V. VSS/AFEBRILE. COOPERATIVE WITH CARE. CALL LIGHT IN REACH. BED IN LOWEST POSITION. VIRTUAL CAMERA IN PLACE. WILL CONTINUE TO MONITOR UNTIL DAY SHIFT NURSE ASSUMES CARE.
[2024-08-14 07:09] VITALS: BP 122/78
--- NOTE | 2024-08-14 12:47 | NUR ---
DISCONTNUED AVASURE CAMERA ON PATIENT. IT HAS NOT BEEN NEEDED, PT HAS NOT BEEN IMPULSIVE, UTILIZING BED ALARM. DISCUSSED WITH LICENSED ARCHITECT.
[2024-08-14 15:37] VITALS: BP 119/63
--- NOTE | 2024-08-14 16:41 | NUR ---
SHIFT SUMMARY: NO EVENTS OR CHANGE WITH THE PATIENT THROUGHOUT THE SHIFT. SHE HASN'T BEEN IMPULSIVE; SHE WILL OCASSIONALLY USE HER CALL LIGHT. SHE IS PLEASANT AND COOPERATIVE WITH CARE, CONTINENT, EATING AND DRINKING. SHE IS CURRENTLY IN BED, ALERT, WATCHING TV, BED ALARM SET, AND CALL LIGHT WITHIN REACH, NO SIGNS OR SYMPTOMS OF DISTRESS, PLAN OF CARE ONGOING.
[2024-08-14 19:22] VITALS: BP 120/64
[2024-08-15 04:21] VITALS: BP 131/76
[2024-08-15 15:07] VITALS: BP 119/68
--- NOTE | 2024-08-15 17:37 | NUR ---
SHIFT SUMMARY: NO EVENTS OR CHANGES WITH THE PATIENT THROUGHOUT THE SHIFT. SHE IS IN BED, ALERT; WATCHING TV, CALL LIGHT WITHIN REACH, BED ALARM ON, NO SIGNS OR SYMPTOMS OF DISTRESS, PLAN OF CARE ONGOIN.
[2024-08-15 19:49] VITALS: BP 114/66
--- NOTE | 2024-08-16 04:55 | NUR ---
Patient had no acute changes. AXO X4 with confusion at times. SBA to BSC. No IV access. Denies chest pain, SOB, and N/V. VSS/afebrile. Cooperative with cares. Call light with in reach. Bed in lowest position. Will continue to monitor until day shift resumes cares.
[2024-08-16 04:58] VITALS: BP 110/61
[2024-08-16 07:04] VITALS: BP 113/56
[2024-08-16 15:09] VITALS: BP 105/59
--- NOTE | 2024-08-16 16:57 | NUR ---
SHIFT SUMMARY: NO EVENTS OR CHANGES WITH THE PATIENT THROUGHOUT THE SHIFT. SHE JUST RETURNED TO HER BED FROM A WALK WITH THE HEALTH CARE TECHNICIAN. SHE IS PLEASANT AND COOPERATIVE WITH CARE, HASN'T BEEN IMPUSLIVE, USES HER CALL LIGHT APPROPRIATELY, AND IS UP TO DATE OF CURRENT EVENT, DATE/TIME. BED ALARM ON, CALL LIGHT WITHIN REACH, NO SIGNS OR SYMPTOMS OF DISTRESS, PLAN OF CARE ONGOING.
[2024-08-16 19:19] VITALS: BP 111/57
[2024-08-17 03:11] VITALS: BP 111/68
--- NOTE | 2024-08-17 04:20 | NUR ---
SHIFT SUMMARY PATIENT HAS BEEN SLEEPING INTERMITTANTLY DURING THIS SHIFT. SHE HAS NOT HAD ANY COMPLAINTS TONIGHT. SHE HAS BEEN ORIENTED X 3 ON THIS SHIFT. SHE HAS USED HER CALL LIGHT APPROPRIATELY. CALL LIGHT IS WITHIN REACH AND BED ALARM IS SET. SAFETY PRECAUTIONS ARE BEING MAINTAINED.
[2024-08-17 07:09] VITALS: BP 114/75
[2024-08-17 16:02] VITALS: BP 101/58
--- NOTE | 2024-08-17 16:31 | NUR ---
SHIFT SUMMARY MS DIAZ IS ABLE TO ANSWER ALL ORIENTATION QUESTIONS AND ENGAGE IN APPROPRIATE CONVERSATION. SHE GOT UP TO THE SHOWER THIS MORNING BUT HAS NOT WANTED TO WALK IN THE HALLS THIS AFTERNOON SHE DOESN'T WANT TO MISS THE SUPERBOWL. VISITED BY HER CO-GUARDIAN DAYA DONIS. SHE DENIES PAIN. SHE DENIES ANY NEW CONCERNS, VOICED CONTECT WITH CARE AND LOOKING FORWARD TO DISCHARGE FROM HOSPITAL. BED LOW, CALL LIGHT IN REACH.
--- NOTE | 2024-08-18 06:21 | NUR ---
SHIFT SUMMARY PATIENT HAS BEEN SLEEPING INTERMITTANTLY THROUGHOUT THE NIGHT. SHE DENIES PAIN. SHE IS ORIENTED X3. SHE HAS HER CALL LIGHT WITHIN REACH AND HER BED ALARM IS SET. SAFETY PRECAUTIONS ARE BEING MAINTAINED.
[2024-08-18 06:26] VITALS: BP 110/59
--- NOTE | 2024-08-18 07:43 | NUR ---
ASSUMED CARE OF PATIENT. SLEEPING AT TIME OF SHIFT-CHANGE REPORT. BED IN LOWEST POSITION. CALL LIGHT WITHIN REACH. NO ACUTE NEEDS.
[2024-08-18 15:31] VITALS: BP 111/57
--- NOTE | 2024-08-18 15:40 | NUR ---
ASSUMED CARE OF PATIENT WMike WATTS RN SUPERVISION. PT GAVE VERBAL CONSENT TO CARE. ASSISTED PT UP TO BEDSIDE COMMODE W/SBA, BACK TO BED, CALL LIGHT IN REACH AND BED ALARM ACTIVE. TOLERATED ACTIVITY WELL.
--- NOTE | 2024-08-18 17:55 | NUR ---
END OF SHIFT SUMMARY: A&Ox4. PLEASANT AND COOPERATIVE WITH CARE. CALLS APPROPRIATELY AND IS ABLE TO ADVOCATE NEEDS EFFECTIVELY. CONTINENT OF BOWEL AND BLADDER; AMBULATES TO BATHROOM PRN OR BSC DURING TIMES OF URINARY URGENCY. MEDS WHOLE WITH FLUIDS. NO IV ACCESS. NO ACUTE CONCERNS. SCDs DCd PER DR AMBRIZ D/T AMBULATING AND RECEIVING LOVENOX INJECTIONS. GUARDIAN, MONICA AVALOS, IN TO SEE PATIENT. BED IN LOWEST POSITION, CALL LIGHT WITHIN REACH, ALL NEEDS MET. REPORT TO ONCOMING NURSE.
[2024-08-18 19:18] VITALS: BP 113/75
[2024-08-19 03:06] VITALS: BP 113/63
--- NOTE | 2024-08-19 05:13 | NUR ---
SHIFT SUMMARY PATIENT HAS BEEN SLEEPING INTERMITTANTLY THROUGHOUT THE NIGHT. SHE HAS BEEN ORIENTED X3 ON THIS SHIFT. SHE HAS EXPRESSED MUCH ANXIETY ABOUT DISCHARGING TO A REHAB FACILITY. PATIENT HAS HER CALL LIGHT WITHIN REACH AND HER BED ALARM IS SET. SAFETY PRECAUTIONS ARE BEING MAINTAINED.
[2024-08-19 07:08] VITALS: BP 111/74
--- NOTE | 2024-08-19 07:45 | NUR ---
ASSUMPTION OF CARE: ASSUMED CARE OF PATIENT. SLEEPING SHIFT CHANGE REPORT. LYING IN BED c EYES CLOSED. BREATHING EVEN AND UNLABORED. BED IN LOWEST POSITION. CALL LIGHT WITHIN REACH. NO ACUTE NEEDS.
--- NOTE | 2024-08-19 10:11 | NUR ---
Patient gave verbal consent to work with chief nursing executive.
[2024-08-19 15:29] VITALS: BP 110/62
--- NOTE | 2024-08-19 16:20 | NUR ---
Patient urinated into commode at bedside in umeasured void
--- NOTE | 2024-08-19 19:24 | NUR ---
END OF SHIFT SUMMARY: A&Ox4. PLEASANT AND COOPERATIVE WITH CARE. CALLS APPROPRIATELY AND IS ABLE TO ADVOCATE NEEDS EFFECTIVELY. CONTINENT OF BOWEL AND BLADDER; AMBULATES TO BATHROOM PRN OR BSC DURING TIMES OF URINARY URGENCY. MEDS WHOLE WITH FLUIDS. NO IV ACCESS. NO ACUTE CONCERNS. BED IN LOWEST POSITION, CALL LIGHT WITHIN REACH, ALL NEEDS MET. REPORT TO ONCOMING NURSE.
[2024-08-19 19:31] VITALS: BP 108/65
[2024-08-20 04:29] VITALS: BP 110/74
--- NOTE | 2024-08-20 06:48 | NUR ---
NO CHANGES TO REPORT THIS SHIFT. PT HAS SLEPT THROUGHOUT THE NIGHT. CALLS APPROPRIATELY FOR ASSISTANCE TO THE BSC.
--- NOTE | 2024-08-20 07:30 | NUR ---
ASSUMED CARE OF PATIENT. SLEEPING DURING TIME OF SHIFT CHANGE. NO ACUTE CONCERNS.
[2024-08-20 07:37] VITALS: BP 109/66
--- NOTE | 2024-08-20 10:46 | NUR ---
LELIA BURNETT, NOTIFIED THIS RN THAT PATIENT HAD A SKIN TEAR TO LEFT FOREARM. PATIENT WAS LOG ROLLING OUT OF BED TO TRANSFER TO BEDSIDE COMMODE, SCRAPING HER LEFT FOREARM AGAINST THE SIDE RAILING OF THE BED. NO C/O PAIN OR DISCOMFORT. WOUND V-SHAPED 1cm x 1cm SKIN TEAR. WOUND CARE OF STERI STRIP, NONADHESIVE AND TEGADERM APPLIED.
[2024-08-20 15:58] VITALS: BP 107/60
--- NOTE | 2024-08-20 17:18 | NUR ---
END OF SHIFT SUMMARY: A&Ox4. PLEASANT AND COOPERATIVE WITH CARE. CALLS APPROPRIATELY AND IS ABLE TO ADVOCATE NEEDS EFFECTIVELY. CONTINENT OF BOWEL AND BLADDER; AMBULATES TO BATHROOM PRN OR BSC DURING TIMES OF URINARY URGENCY. MEDS WHOLE WITH FLUIDS. NO IV ACCESS. NO ACUTE CONCERNS. HAS DECLINED OFFERS TO AMBULATE WITHIN [facility]. DID GET UP INTO RECLINER FOR A FEW HOURS TODAY, BUT REPORTS SHE PREFERS TO LAY IN BED; WHEN HOME SHE WOULD LAY ON THE COUCH AND THIS IS MOST COMFORTABLE FOR HER. SMALL 1cm X 1cm V-SHAPED SKIN TEAR TO LEFT FOREARM OBTAINED DURING TRANSFERRING TODAY; PROVIDER NOTIFIED AND WOUND CARE PROVIDED. SEEN BY FUEL HANDLER AND CHANGED TO SOFT & BITE-SIZED FOOD D/T C/O DIFFICULTY CHEWING. LIQUACEL AND PROTEIN SUPPLEMENTS DCd AND FOLIC ACID ADDED TO MEDICATION REGIMEN. GUARDIANSHIP LEGALLY ESTABLISHED: [facility] [phone]. BED IN LOWEST POSITION, CALL LIGHT WITHIN REACH, ALL NEEDS MET. REPORT TO ONCOMING NURSE.
[2024-08-20 19:42] VITALS: BP 110/56
[2024-08-21 03:37] VITALS: BP 126/63
--- NOTE | 2024-08-21 06:45 | NUR ---
SHIFT SUMMARY NOC PT A/O X 4. PLEASANT AND COOPERATIVE WITH CARE. VSS. NO ACUTE EVENTS TO REPORT. PT USES CALL LIGHT FOR NEEDS, AND SBA TO BSC. PT HAS GUARDIANSHIP IN PLACE AND EXPECTED TO DISCHARGE SUNDAY TO [facility].
--- NOTE | 2024-08-21 06:46 | NUR ---
SHIFT SUMMARY NOC PT A/O X 4. PLEASANT AND COOPERATIVE WITH CARE. VSS. ADMIT FROM ED FOR SYNCOPE, PT [facility] AND WAS UNRESPONSIVE FOR 2 MINUTES. PT UNDERGOING LABS FOR PANCYTOPENIA. PT ON NEUTROPENIC PRECAUTIONS WBC 1.0. HAS HX OF COLON CANCER WITH COLON RESECTION IN 2022. PT ASLO REPORT FEELING FATIGUED SINCE FEBRUARY 2024, AND PCP TELLING PT THAT THEY MAY HAVE HAD VT. PT ON TELE SINUS TACH IN 'S. PT REPORTS CONTINENCE BASELINE, BUT HAS HAD MULTIPLE INC BM AND URINE SINCE IN HOSPITAL. PT HAS HOME CPAP IN ROOM RT SETUP FOR SLEEPING. PT RECEIVING IV ABX AND HAS NS INFUSING @ 100 ML/HR. PT SPIKED TEMP 101.3F AND GIVEN TYLENOL PT CURRENTLY RESTING WITH BED IN LOWEST POSITION, AND CALL LIGHT WITHIN REACH.
[2024-08-21 07:52] VITALS: BP 110/63
[2024-08-21] MEDS ORDERED: Folic Acid 1 MG TAB PO SCH (09:00)
--- NOTE | 2024-08-21 16:19 | NUR ---
NO CHANGES IN PT STATUS TODAY. PT HAD A SHOWER TODAY BY SCRAP KETTLE TENDER PT HAD NO C/O PAIN OR SOB. PT HAS NO QUESTIONS OR CONCERNS AT THIS TIME.
[2024-08-21 17:42] VITALS: BP 109/66
[2024-08-21 19:27] VITALS: BP 110/63
[2024-08-22 02:52] VITALS: BP 117/65
--- NOTE | 2024-08-22 06:09 | NUR ---
SHIFT SUMMARY NOC PT A/O X 4. PLEASANT AND COOPERATIVE WITH CARE. VSS NO ACUTE CHANGES TO REPORT. PT USING CALL LIGHT APPROPRIATELY WHEN HAVING TO USE BSC. PT AWAITING FINALIZATION OF GUARDIANSHIP IN COURT SO THAT THEY CAN DISCHARGE TO [facility]. PT CURRENTLY RESTING WITH BED IN LOWEST POSITION, AND CALL LIGHT WITHIN REACH.
[2024-08-22 15:27] VITALS: BP 106/61
--- NOTE | 2024-08-22 16:20 | NUR ---
NO CHANGES IN PT TODAY. NO SOB, CORY PAIN OR C/O PAIN. PT HAS NO QUESTIONS OR CONCERNS AT THIS TIME
[2024-08-22 19:06] VITALS: BP 122/64
[2024-08-23 02:54] VITALS: BP 130/74
--- NOTE | 2024-08-23 03:49 | NUR ---
SHIFT SUMMARY PT ALERT ORIENTED X 4 ABLE TO VERBALIZE NEEDS CALLS APPROPRIATELY. GETS UP WITH 1 PERSON SBA TO THE COMMODE. SHES WAITING ON FINALIZATION OF GUARDIANSHIP SO SHE CAN BE TRANSFERRED TO [facility]. VSS ON RA SATTING AT 94%. NO C/O PAIN THIS SHIFT. HAS SLEPT MOST OF THE NIGHT. RESTING IN BED AT THIS TIME WITH CALL LIGHT IN REACH AND BED ALARM ON
[2024-08-23 08:11] VITALS: BP 111/61
[2024-08-23 16:09] VITALS: BP 113/51; BP 130/64
--- NOTE | 2024-08-23 16:56 | NUR ---
ALERT AND ORIENTED X3, ONE PERSON ASSIST, PLEASANT TO CARE, USES CALL LIGHT, PATIENT AMBULATED TO BATHROOM EASILY, UNSTEADY AT TIMES, CALL LIGHT WITH IN REACH
[2024-08-23 19:09] VITALS: BP 112/57
[2024-08-24 02:30] VITALS: BP 111/63
--- NOTE | 2024-08-24 04:29 | NUR ---
SHIFT SUMMARY PT ALERT ORIENTED X 4 ABLE TO VERBALIZE NEEDS CALLS APPROPRIATELY GETS UP TO THE COMMODE WITH 1 PERSON SBA. SHES AWAITING FINAL PAPERWORK OF THE GUARDIANSHIP SO [facility] CAN [facility]. VSS ON RA SATTING AT 95%. SHE HAS NO IV. NO BEHAVIORS. RESTING WELL IN BED AT THIS TIME WITH CALL LIGHT IN REACH
[2024-08-24 07:55] VITALS: BP 116/65
--- NOTE | 2024-08-24 18:13 | NUR ---
PT A&OX3, VSS, RA, NO COMPLAINTS OF PAIN. SBA TO BSC, 1 LG BM THIS SHIFT. PT PLEASANT AND COOPERATIVE WITH CARE, AWAITING PLACEMENT THIS WEEK.
[2024-08-24 19:43] VITALS: BP 112/74
[2024-08-25 03:11] VITALS: BP 104/66
--- NOTE | 2024-08-25 06:01 | NUR ---
SHIFT SUMMARY PT ALERT ORIENTED X 4 ABLE TO VERBALIZE NEEDS CALLS APPROPRIATELY. NO C/O PAIN. REQUIRES 1 PERSON SBA TO GET UP TO THE COMMODE. VSS ON RA SATTING AT 95%. SHES DUE TO DISCHARGE ON SUNDAY TO [facility]. SHE HAS NO IV. NO CHANGES THIS SHIFT. SHES SLEPT MOST OF THE NIGHT. RESTING IN BED AT THIS TIME WITH CALL LIGHT IN REACH
[2024-08-25 07:57] VITALS: BP 102/65
[2024-08-25 15:22] VITALS: BP 101/62
--- NOTE | 2024-08-25 18:21 | NUR ---
PT A&OX4, VSS, RA, NO IV. SBA TO BSC FOR SAFETY, EDUCATED TO CALL FOR HELP. PT PLEASANT AND COOPERATIVE WITH CARES. AWAITING PLACEMENT.
[2024-08-25 19:32] VITALS: BP 103/63
--- NOTE | 2024-08-26 04:10 | NUR ---
SHIFT SUMMARY ADMITTED FOR HYPOTHERMIA - RESOLVED. DNR CODE. AWAITING PLACEMENT. SOFT BITE DIET. STANDBY ASSIST - BRP. ON RA. A&O X4. SHE CALLS APPROPRIATELY AND IS CONTINENT. NO NEW CONCERNS THIS SHIFT.
[2024-08-26 04:17] VITALS: BP 114/56
[2024-08-26 07:01] VITALS: BP 107/58
[2024-08-26 15:59] VITALS: BP 99/67
--- NOTE | 2024-08-26 17:08 | NUR ---
NO ACUTE CHANGES THIS SHIFT. PT ABLE TO EXPRESS NEEDS, SBA TO BATHROOM. CALLS APPROPRIATELY. POSSIBLE D/C TOMORROW
[2024-08-26 19:11] VITALS: BP 113/60
--- NOTE | 2024-08-27 03:31 | NUR ---
SHIFT SUMMARY ADMITTED FOR HYPOTHERMIA. DNR CODE. PLAN IS FOR PLACEMENT, HOPEFUL FOR TODAY. SHE IS A&O X4. SHE IS INDEPENDENT IN THE ROOM. SOFT BITE SIZE DIET. ON RA. SHE SLEPT SOUNDLY THROUGHOUT SHIFT AND DENIED DISCOMFORT. I HAVE NO NEW CONCERNS THIS SHIFT
[2024-08-27 04:55] VITALS: BP 113/59
[2024-08-27 07:52] VITALS: BP 107/70
--- NOTE | 2024-08-27 08:55 | NUR ---
Obtained verbal permission from patient to provide care.
[2024-08-27 16:26] VITALS: BP 115/63
--- NOTE | 2024-08-27 16:34 | NUR ---
NO ACUTE CHANGES THIS SHIFT. PT LIKELY TO DISCHARGE TOMORROW. SBA IN ROOM. ABLE TO EXPRESS NEEDS. R/A.
[2024-08-27 19:43] VITALS: BP 119/72
--- NOTE | 2024-08-28 03:57 | NUR ---
SHIFT SUMMARY ADMITTED FOR HYPOTHERMIA - RESOLVED. DNR CODE. PLAN IS FOR PLACEMENT, AWAITING INSURANCE APPROVAL. SOFT BITE SIZE DIET. A&O X4. INDEPENDENT IN ROOM. ON RA. COOPERATIVE WITH CARE. NO NEW CONCERNS THIS SHIFT.
[2024-08-28 06:03] VITALS: BP 107/67
[2024-08-28 07:21] VITALS: BP 114/62
--- NOTE | 2024-08-28 16:33 | NUR ---
FISHY ODOR NOTED IN PT ROOM, PT DENIES BURING OR DISCOMFORT WITH URINATION, DENIES URGENCY, DENIES ITCHING AND IRRITATION OF VAGINA. DR. HOOK NOTIFED.
[2024-08-28 16:35] VITALS: BP 107/61
--- NOTE | 2024-08-28 18:11 | NUR ---
NO ACUTE CHANGES THIS SHIFT. ALERT AND ORIENTED X4. SBA WITH FWW . PT CALLS APPROPRIATELY. PLAN FOR DISCHARGE TOMORROW 1000.
[2024-08-28 20:06] VITALS: BP 109/55
[2024-08-29 04:56] VITALS: BP 104/71
--- NOTE | 2024-08-29 06:19 | NUR ---
SHIFT SUMMARY: Pt is admitted for hypothermia and is a DNR. is alert and able to make needs known. ADLs have been IND. denies pain or discomfort when asked.
[2024-08-29 07:02] VITALS: BP 105/59
--- NOTE | 2024-08-29 12:00 | NUR ---
SHIFT SUMMARY AND DISCHARGE PATIENT ALERT AND INDEPENDENT IN THE ROOM. PATIENT USING WALKER AT TIMES. PATIENT ALERT AND ABLE TO MAKE NEEDS KNOWN. PATIENT EAGER TO GT TO [facility]. PATIENT DISCHARGED TO [facility]. REPORT CALLED. BELONGINGS SENT WITH PATIENT. ROOM CHECK DONE PRIOR TO DISCHARGE.
== END 2024-08-29 11:23 | DRG 923 ==
LOC: ER 10:18 → ICUE 14:00 → MEDS 14:00 → ICUE 16:43 → MEDS 21:11 → ENPENDDIS 08-29 08:28 → MEDS 08-29 11:23
PROVIDERS: Emergency Medicine; Internal Medicine; ADMIT Family Medicine
DX: T68.XXXA Hypothermia, initial encounter (principal); F02.83 Dementia in other diseases classified elsewhere, unspecified severity, with mood disturbance; E44.0 Moderate protein-calorie malnutrition; F02.811 Dementia in other diseases classified elsewhere, unspecified severity, with agitation; Z66 Do not resuscitate; Z78.1 Physical restraint status; E66.9 Obesity, unspecified; Z68.21 Body mass index [BMI] 21.0-21.9, adult; R62.7 Adult failure to thrive; D64.9 Anemia, unspecified; G62.9 Polyneuropathy, unspecified; K76.0 Fatty (change of) liver, not elsewhere classified; I10 Essential (primary) hypertension; F17.210 Nicotine dependence, cigarettes, uncomplicated; G30.9 Alzheimer's disease, unspecified; F10.10 Alcohol abuse, uncomplicated; Z79.899 Other long term (current) drug therapy
CPT/HCPCS: 36415; 51702; 80048; 80053; 80320; 82140; 82550; 82947; 83605; 83735; 85025; 85027; 86850; 86900; 86901; 92526; 92610; 93005; 93010; 97110; 97112; 97129; 97130; 97162; 97164; 97166; 97530; 97535; 99285-25; A9270; J1630; J1650; J2060; J7120

== ENCOUNTER → 2024-09-10 | Outpatient (CLI) | payer OTHER ==
[~2024-09-10] MED LIST changes: +ZESTRIL40 M2 PO
[2024-09-10 14:47] LABS: BASOPHILS ABSOLUTE AUTO 0.04 K/mm3 (0.00-0.23); BASOPHILS PERCENT AUTO 1 % (0-2); EOSINOPHILS ABSOLUTE AUTO 0.23 K/mm3 (0.00-0.68); EOSINOPHILS PERCENT AUTO 4 % (0-6); Hematocrit 34.1 % (33.0-51.0); Hemoglobin 11.3 g/dL (11.5-16.0); IMMATURE GRAN ABSOLUTE AUTO 0.01 K/mm3 (0.00-0.10); IMMATURE GRAN PERCENT AUTO 0 % (0-1); LYMPHOCYTES ABSOLUTE AUTO 2.59 K/mm3 (0.84-5.20); LYMPHOCYTES PERCENT AUTO 39 % (21-46); MONOCYTES ABSOLUTE AUTO 0.69 K/mm3 (0.16-1.47); MONOCYTES PERCENT AUTO 11 % (4-13); Mean Corpuscular HGB 31.7 pg (26.0-34.0); Mean Corpuscular HGB Conc 33.1 g/dL (31.5-36.5); Mean Corpuscular Volume 96 fL (80-100); Mean Platelet Volume 10.4 fL (9.1-12.4); NEUTROPHILS ABSOLUTE AUTO 3.02 K/mm3 (1.96-9.15); NEUTROPHILS PERCENT AUTO 46 % (41-73); Platelet Count 274 K/mm3 (150-400); RDW Coefficient Variation 13.2 % (11.7-14.2); RDW Standard Deviation 46.7 fL (35.1-46.3); Red Blood Cell Count 3.57 M/mm3 (3.80-5.20); White Blood Cell Count 6.58 K/mm3 (4.00-11.30)
[2024-09-10 15:33] LABS: Albumin/Globulin Ratio 0.8 (0.8-1.8); Bilirubin, Total 0.4 mg/dL (0.1-1.0); Calcium, Blood 9.2 mg/dL (8.5-10.1); Creatinine, Blood 0.75 mg/dL (0.40-1.00); Globulin, Blood 3.8 g/dL (2.2-4.0); Potassium, Blood 3.8 mmol/L (3.5-5.5); Total Protein, Blood 6.8 g/dL (6.4-8.2)
== END ==
LOC: LAB SHORT 13:35 → LAB 13:35
PROVIDERS: Nurse Practitioner Family
DX: D64.9 Anemia, unspecified (principal)
CPT/HCPCS: 80053; 85025

== ENCOUNTER 2025-07-03 11:52 | Emergency (ER) | payer OTHER ==
[~2025-07-03] VITALS: Ht 167.6 cm; Wt 81.7 kg
[2025-07-03 13:00] VITALS: BP 147/94
[2025-07-03] MEDS ORDERED: Ketorolac Tromethamine 30mg Vial IM ONE (15:00)
[2025-07-03] MEDS ORDERED: OxyCODONE 5 mg/Acetamin 325 mg TABLET PO ONE (15:00)
[2025-07-03] MEDS ORDERED: Percocet 5-3251 EACH PO (15:17)
== END 2025-07-03 16:18 | disposition home or self-care (01) ==
LOC: ER 11:52
DX: S42.212A Unspecified displaced fracture of surgical neck of left humerus, initial encounter for closed fracture (principal); F17.200 Nicotine dependence, unspecified, uncomplicated; W18.30XA Fall on same level, unspecified, initial encounter
CPT/HCPCS: 73030; 96372; 99283-25; A9270; J1885